=== PATIENT | male | born 1940 | race Caucasian/White ===

== ENCOUNTER 2023-04-06 17:47 | Inpatient (IN) | payer OTHER, SELFPAY ==
[2023-04-06] VITALS (14 sets, daily range): BP systolic 80–137; BP diastolic 64–110; PULSE 2–94
[2023-04-06 13:56] LABS: % Basophils 0.2 % (0-2); % Eosinophils 0.4 % (0-6); % Immature Granulocytes 0.6 % (0-0.5); % Lymphocytes 4.6 % (20.5-51.1); % Monocytes 3.4 % (1.7-9.3); % Neutrophils 90.8 % (42.2-75.2); Absolute Immature Granulocytes 0.1 10^3/uL (0-0.05); Absolute Lymphocytes 0.4 10^3/uL (1.2-3.4); Absolute Monocytes 0.3 10^3/uL (0.1-0.6); Absolute Neutrophils 7.7 10^3/uL (1.4-6.5); Hematocrit 37.3 % (39.0-52.0); Hemoglobin 10.8 g/dL (13.0-18.0); Mean Corpuscular Hgb 28.1 pg (27.0-31.0); Mean Corpuscular Volume 96.9 fL (80.0-94.0); Mean Platelet Volume 8.7 fL (7.4-10.4); Nucleated Red Blood Cells % 0 % (-); Platelet Count 277 10^3/uL (130-400); Red Blood Cell Count 3.85 10^6/uL (4.70-6.10); Red Cell Dist. Width 15.9 % (11.5-14.5); White Blood Cell Count 8.5 10^3/uL (4.8-10.8)
[2023-04-06 14:03] LABS: COVID-19 Antigen Negative (Negative)
[2023-04-06 14:06] LABS: ALT (SGPT) 46 U/L (0-50); AST (SGOT) 29 U/L (17-59); Albumin 3.2 g/dl (3.5-5.0); Alkaline Phosphatase 97 U/L (38-126); Blood Urea Nitrogen 16 mg/dl (9-20); Calcium 8.5 mg/dl (8.4-10.2); Chloride 98 mmol/L (98-107); Glucose 184 mg/dl (70-99); Magnesium 2.2 mg/dl (1.6-2.3); Potassium 5.1 mmol/L (3.5-5.1); Sodium 138 mmol/L (135-145); Total Bilirubin 0.7 mg/dl (0.2-1.3); Total Protein 6.1 g/dl (6.3-8.2); eGFR > 60.00
[2023-04-06 14:18] LABS: NT-proBNP 7460 pg/ml
[2023-04-06] MEDS: LASIX 40 MG IV (14:24)
--- NOTE | 2023-04-06 14:32 | ED.GENMED ---
History of Present Illness
<Maite Spain PA-C - Last Filed: 04/06/23 15:46>
General
Chief Complaint: Breathing Problem
Source: patient
Exam Limitations: none
Time Seen by Provider: 04/06/23 13:24
Nursing documentation reviewed up to this point in time: agreed with
History of Present Illness
History of Present Illness:
pt is a 82 y/o M
afib on eliquis, copd, cad s/p cabg 4 vessel 03/01 here
has had ongoing issues with CHF/fluid overload and pleural effusion
was admitted and discharged 10 days ago and he is on lasix 20 mg from 40 mg (pt has single kidney)
pt has been compliant
but getting worse and worse the past 2 days
low grade temp
and a slight cough
had outpatient CXR from pcp yesterday which showed a pleural effusion and maybe pneumonia
he was treated with 1 dose of abx
he has had ongoing SOB and some mild edema in his legs
he denies chest pain, vomiting, diarrhea.
<Suhail Jones MD - Last Filed: 04/06/23 18:15>
Travel History
Have you had any contact with someone who has COVID-19?: No
Do you have any symptoms of coronavirus? Fever > 100 degrees, chills, cough, shortness of breath, sore throat, loss of taste or smell, muscle aches, or headache?: Yes
Symptoms:: sob
Past History
<Maite Spain PA-C - Last Filed: 04/06/23 15:46>
Past History
ED Past Medical History: Arrthythmia, CAD, CHF, COPD, HTN and Hypercholesterolemia
<Suhail Jones MD - Last Filed: 04/06/23 18:15>
Past History
ED Past Medical History: Other (COPD, hypertension, hyperlipidemia, heart failure, A-fib, CAD)
ED Past Surgical History: Cardiac
Social History
Alcohol: None
Drug: None
Personal:
Living: with family
Review of Systems
<Maite Spain PA-C - Last Filed: 04/06/23 15:46>
Review of Systems
Allergies reviewed?: Yes
All Other Systems: Not applicable
Phy Exam
<Maite Spain PA-C - Last Filed: 04/06/23 15:46>
Physical Exam
Physical Exam:
GENERAL: Alert , resp distress, tachypneic
EYE: pupils equal and reactive
NECK: Supple
ENT: o/p clr, mmm.
CARDIAC:irregularly irregular. trace edema
LUNGS: fairly tachypneic, very minimal breath sounds/diminished, some crackles and wheezes;
ABDOMEN: Soft, without focal tenderness, no r/g, no cvat, normal bowel sounds
NEUROLOGICAL: Alert and oriented, no focal neuro deficits
SKIN: Warm and dry, pale
MUSCULOSKELETAL: No edema, well perfused. neg alvino's sign
PSYCH: Normal and appropriate interaction.
Scores
<YASMANY Conner Last Filed: 04/06/23 15:46>
Heart Failure Risk
Heart Failure Risk Score: Not Applicable
Course
<YASMANY Conner Last Filed: 04/06/23 15:46>
Orders/Labs/Results
Orders:
Orders
04/06/23 13:36
Chest X-ray Portable [CR Chest Portable - 1 View] Stat
Comment:
Reason For Exam: sob, chf
Reason Study Needs to be Portable: Patient Unstable
04/06/23 13:42
Electrocardiogram (*1) Stat
Reason for Study: Other
Other Reason for Exam: chest pain
Cardiac Monitoring- Treatment ONCE
EKG- Treatment ONCE
Bipap [RESP] Stat
Patient to use own unit?: No
Inspiratory Pressure (cm H2O): 12
Expiratory Pressure (cm H2O): 6
04/06/23 13:44
COVID-19 Antigen Urgent
Source: Nasal Swab
Complete Blood Count/With Diff Urgent
Comprehensive Metabolic Panel Urgent
Magnesium Urgent
NT-proBNP Urgent
Troponin I Urgent
Influenza A+B Rapid Molecular Urgent
JOSEY Source: Nasal Swab
Specimen Description:
04/06/23 14:19
Furosemide [Lasix] 40 mg IV NOW STA
04/06/23 14:45
US Chest - Bilateral Urgent
Comment:
Reason For Exam: Evaluate for effusion versus infiltrate. Bedside
04/06/23 14:46
Cefepime HCl [Maxipime] 2,000 mg IV NOW STA
04/06/23 15:42
Ipratropium/Albuterol Sulfate [Duoneb] 3 ml INH R NOW ONE
04/06/23 15:58
Blood Culture Q30M
JOSEY Source: Blood/Venous
Specimen Description:
Blood Culture Q30M
JOSEY Source: Blood/Venous
Specimen Description:
04/06/23 16:16
Furosemide [Lasix] 40 mg IV NOW STA
04/06/23 16:36
Consult Interventional Radiology [IRAD CONSULT] Urgent
Consulting Provider: Kavon Montelongo
Was physician already notified: Yes
Reason for consult: thoracentesis
04/06/23 16:38
Gram Stain Routine
JOSEY Source: Pleural Fluid
Specimen Description:
Comment: POST PROCEDURE
04/06/23 16:47
Admit/Transfer Patient As Directed
Co-Sign Provider:
Level of Care: Inpatient admission
Assign to:: IMU- Intermediate Care
Physician / Group: Alida/Hospitalist
Diagnosis: HCAP, hypoxic respiratory failure, AECHF
Reason for Hospitalization: HCAP, hypoxic respiratory failure, AECHF
Expected length of stay greater than two midnights?: Yes
ELOS- Estimated Length of Stay in days: 4
I certify the patient meets the requirements for IP care: Yes
04/06/23 16:48
Code Status As Directed
Resuscitation Status: Full Code
04/06/23 16:56
Vancomycin 1 Gram/200 ml [Vancocin] 1 gram in 200 ml IV NOW
04/06/23 17:28
Body Fluid Cell Count Routine
What is the Body Fluid: pleural fluid
Date Specimen was Collected: 04/06/23
Time Specimen was Collected: 17:21
Comment: left thoracentesis
Body Fluid Glucose Routine
Fluid Source: Pleural
Date Specimen was Collected: 04/06/23
Time Specimen was Collected: 17:21
Comment: left thoracentesis
Body Fluid LDH Routine
Fluid Source: Pleural
Date Specimen was Collected: 04/06/23
Time Specimen was Collected: 17:21
Comment: left thoracentesis
Body Fluid Protein Routine
Fluid Source: Pleural
Date Specimen was Collected: 04/06/23
Time Specimen was Collected: 17:21
Comment: left thoracentesis
Body Fluid pH Routine
Fluid Source: Pleural
Date Specimen was Collected: 04/06/23
Time Specimen was Collected: 17:21
Comment: left thoracentesis
Fluid Culture with Gram Stain Routine
JOSEY Source: Pleural Fluid
Specimen Description:
Date Specimen was Collected: 04/06/23
Time Specimen was Collected: 17:21
Comment: left thoracentesis
04/06/23 17:30
Chest X-ray Portable [CR Chest Portable - 1 View] Urgent
Comment:
Reason For Exam: left thoracentesis
Reason Study Needs to be Portable: Other
If Reason is Other, explain: monitored
04/07/23 08:00
Furosemide [Lasix] 80 mg IV BID AT 0800,1600
Abnormal Lab Results
04/06/23
13:44
RBC 3.85 L 10^6/uL
(4.70-6.10)
Hgb 10.8 L g/dL
(13.0-18.0)
Hct 37.3 L %
(39.0-52.0)
MCV 96.9 H fL
(80.0-94.0)
MCHC 29.0 L g/dL
(33.0-37.0)
RDW 15.9 H %
(11.5-14.5)
Abs Immat Gran (auto) 0.1 H 10^3/uL
(0-0.05)
Absolute Neuts (auto) 7.7 H 10^3/uL
(1.4-6.5)
Absolute Lymphs (auto) 0.4 L 10^3/uL
(1.2-3.4)
Immature Gran % 0.6 H %
(0-0.5)
Neutrophils % 90.8 H %
(42.2-75.2)
Lymphocytes % 4.6 L %
(20.5-51.1)
Carbon Dioxide 37 H mmol/L
(22-30)
Glucose 184 H mg/dl
(70-99)
Total Protein 6.1 L g/dl
(6.3-8.2)
Albumin 3.2 L g/dl
(3.5-5.0)
04/06/23 13:44
04/06/23 13:44
Vital Signs
Initial and Last Documented VS:
Initial Vital Signs
Temp Pulse Resp Pulse Ox
100.1 F 91 22 88
04/06/23 13:12 04/06/23 13:12 04/06/23 13:12 04/06/23 13:12
Last Documented Vital Signs
Temp Pulse Resp BP Pulse Ox
98.2 F 80 23 108/74 97
04/06/23 17:30 04/06/23 17:51 04/06/23 17:51 04/06/23 17:51 04/06/23 17:45
<Suhail Jones MD - Last Filed: 04/06/23 18:15>
Orders/Labs/Results
Orders:
Orders
04/06/23 13:36
Chest X-ray Portable [CR Chest Portable - 1 View] Stat
Comment:
Reason For Exam: sob, chf
Reason Study Needs to be Portable: Patient Unstable
04/06/23 13:42
Electrocardiogram (*1) Stat
Reason for Study: Other
Other Reason for Exam: chest pain
Cardiac Monitoring- Treatment ONCE
EKG- Treatment ONCE
Bipap [RESP] Stat
Patient to use own unit?: No
Inspiratory Pressure (cm H2O): 12
Expiratory Pressure (cm H2O): 6
04/06/23 13:44
COVID-19 Antigen Urgent
Source: Nasal Swab
Complete Blood Count/With Diff Urgent
Comprehensive Metabolic Panel Urgent
Magnesium Urgent
NT-proBNP Urgent
Troponin I Urgent
Influenza A+B Rapid Molecular Urgent
JOSEY Source: Nasal Swab
Specimen Description:
04/06/23 14:19
Furosemide [Lasix] 40 mg IV NOW STA
04/06/23 14:45
US Chest - Bilateral Urgent
Comment:
Reason For Exam: Evaluate for effusion versus infiltrate. Bedside
04/06/23 14:46
Cefepime HCl [Maxipime] 2,000 mg IV NOW STA
04/06/23 15:42
Ipratropium/Albuterol Sulfate [Duoneb] 3 ml INH R NOW ONE
04/06/23 15:58
Blood Culture Q30M
JOSEY Source: Blood/Venous
Specimen Description:
Blood Culture Q30M
JOSEY Source: Blood/Venous
Specimen Description:
04/06/23 16:16
Furosemide [Lasix] 40 mg IV NOW STA
04/06/23 16:36
Consult Interventional Radiology [IRAD CONSULT] Urgent
Consulting Provider: Kavon Montelongo
Was physician already notified: Yes
Reason for consult: thoracentesis
04/06/23 16:38
Gram Stain Routine
JOSEY Source: Pleural Fluid
Specimen Description:
Comment: POST PROCEDURE
04/06/23 16:47
Admit/Transfer Patient As Directed
Co-Sign Provider:
Level of Care: Inpatient admission
Assign to:: IMU- Intermediate Care
Physician / Group: Alida/Hospitalist
Diagnosis: HCAP, hypoxic respiratory failure, AECHF
Reason for Hospitalization: HCAP, hypoxic respiratory failure, AECHF
Expected length of stay greater than two midnights?: Yes
ELOS- Estimated Length of Stay in days: 4
I certify the patient meets the requirements for IP care: Yes
04/06/23 16:48
Code Status As Directed
Resuscitation Status: Full Code
04/06/23 16:56
Vancomycin 1 Gram/200 ml [Vancocin] 1 gram in 200 ml IV NOW
04/06/23 17:28
Body Fluid Cell Count Routine
What is the Body Fluid: pleural fluid
Date Specimen was Collected: 04/06/23
Time Specimen was Collected: 17:21
Comment: left thoracentesis
Body Fluid Glucose Routine
Fluid Source: Pleural
Date Specimen was Collected: 04/06/23
Time Specimen was Collected: 17:21
Comment: left thoracentesis
Body Fluid LDH Routine
Fluid Source: Pleural
Date Specimen was Collected: 04/06/23
Time Specimen was Collected: 17:21
Comment: left thoracentesis
Body Fluid Protein Routine
Fluid Source: Pleural
Date Specimen was Collected: 04/06/23
Time Specimen was Collected: 17:21
Comment: left thoracentesis
Body Fluid pH Routine
Fluid Source: Pleural
Date Specimen was Collected: 04/06/23
Time Specimen was Collected: 17:21
Comment: left thoracentesis
Fluid Culture with Gram Stain Routine
JOSEY Source: Pleural Fluid
Specimen Description:
Date Specimen was Collected: 04/06/23
Time Specimen was Collected: 17:21
Comment: left thoracentesis
04/06/23 17:30
Chest X-ray Portable [CR Chest Portable - 1 View] Urgent
Comment:
Reason For Exam: left thoracentesis
Reason Study Needs to be Portable: Other
If Reason is Other, explain: monitored
04/07/23 08:00
Furosemide [Lasix] 80 mg IV BID AT 0800,1600
Abnormal Lab Results
04/06/23
13:44
RBC 3.85 L 10^6/uL
(4.70-6.10)
Hgb 10.8 L g/dL
(13.0-18.0)
Hct 37.3 L %
(39.0-52.0)
MCV 96.9 H fL
(80.0-94.0)
MCHC 29.0 L g/dL
(33.0-37.0)
RDW 15.9 H %
(11.5-14.5)
Abs Immat Gran (auto) 0.1 H 10^3/uL
(0-0.05)
Absolute Neuts (auto) 7.7 H 10^3/uL
(1.4-6.5)
Absolute Lymphs (auto) 0.4 L 10^3/uL
(1.2-3.4)
Immature Gran % 0.6 H %
(0-0.5)
Neutrophils % 90.8 H %
(42.2-75.2)
Lymphocytes % 4.6 L %
(20.5-51.1)
Carbon Dioxide 37 H mmol/L
(22-30)
Glucose 184 H mg/dl
(70-99)
Total Protein 6.1 L g/dl
(6.3-8.2)
Albumin 3.2 L g/dl
(3.5-5.0)
04/06/23 13:44
04/06/23 13:44
Vital Signs
Initial and Last Documented VS:
Initial Vital Signs
Temp Pulse Resp Pulse Ox
100.1 F 91 22 88
04/06/23 13:12 04/06/23 13:12 04/06/23 13:12 04/06/23 13:12
Last Documented Vital Signs
Temp Pulse Resp BP Pulse Ox
98.2 F 80 23 108/74 97
04/06/23 17:30 04/06/23 17:51 04/06/23 17:51 04/06/23 17:51 04/06/23 17:45
<Maite Spain PA-C - Last Filed: 04/06/23 15:46>
MDM/Problems Addressed
Differential Diagnosis Includes:
chf, pneumonia
MDM/Problems Addressed:
82 y/o M wit hh/o cabg and post operative CHF and pleural effuison
her with increasing SOB and cough with outpatient cxr showing worsening L pleural effusion
pt has had a low grade temp today
got a dose of abx from PCP yesterday
pt has been hospaitlized as recently as a few weeks ago for similar complaints
family says he was told that they were considering a thoracentesis but it was never set up
pt on arrival was very hypoxc to 70s with pale coloring and inc work of breathing, moving minimal air
mild edema b/l
no chest pain
slightly hypertensive 130/100
portable chest reviewed by me to show a worsening left pleural effusino and slightly worse right small effusion
reading from rads is cannot exclude pna
due to patient's hypoxia and inc work fo breathing, pt was immediateyl placed on bipap
he stayed on for about an hour before asking to come off
taken off bipap ab 1545 by principal technical specialist after pt insistent
signed out to hospitalist
pt will need cards, pulm and IR consults.
<Maite Spain PA-C - Last Filed: 04/06/23 15:46>
*Critical Care Note
Total Time (30-74mins, 75-104mins- exclusive of procedures): Not Applicable
<Suhail Jones MD - Last Filed: 04/06/23 18:15>
ED Attending Note
Patient seen and examined by attending physician: Yes
ED Attending Note:
Patient with progressive shortness of breath. Recent CABG. Recent admission for COPD CHF. Known left pleural effusion. Much more short of breath today. No chest pain. No fever.
GENERAL: Alert and oriented. Mild respiratory distress. Currently on BiPAP
EYE: Orbits normal.
NECK: Supple
CARDIAC: Irregular irregular
LUNGS: Mild tachypnea. Decreased breath sounds left base. Some distant breath sounds diffusely
ABDOMEN: Soft, without focal tenderness or distention
NEUROLOGICAL: Alert and oriented , grossly non-focal
SKIN: Warm and dry, no rash or lesion, no discoloration, skin intact.
MUSCULOSKELETAL: Mild bilateral pitting edema. Minimal in nature
PSYCH: Normal and appropriate interaction.
Previous records reviewed. EKG reviewed. CHF pleural effusion possible infiltrate left base. Reviewed with radiology. Cardiology interventional radiology and hospitalist contacted. Continue BiPAP. Lasix. Antibiotic coverage for possible
consolidation. Bedside ultrasound to evaluate degree of effusion. Family updated multiple times.
Ultrasound showed significant left pleural effusion. Interventional radiology consulted. Patient returned from IR with 1200 cc of fluid. Appears much improved.
Critical care 40 minutes
-
Portions of this chart may have been created with voice recognition software.� Occasional wrong word or��sound alike� substitutions may have occurred due to the inherent limitations of voice recognition software.
Discharge Plan
Departure
Patient Disposition: Admit
Date of Disposition: 04/06/23
Time of Disposition: 14:28
Admit to: IMU
Presentation/result/management discussed w/ accepting MD/DO: Hospitalist
Condition: Fair
Covid-19: Negative COVID-19
Discharge Problem:
CHF (congestive heart failure), Pleural effusion, Hypoxia
Interventions
Interventions:
*Risk Screen - Suicide Last Done: 04/06/23 13:16
*General Assessment Last Done: 04/06/23 13:16
*Neglect/Abuse Screening Last Done: 04/06/23 13:16
ED- Fall Risk Assessment Last Done: 04/06/23 13:42
ED- Cardiac Assessment Last Done: 04/06/23 13:42
ED- Pulmonary Assessment Last Done: 04/06/23 13:42
[2023-04-06 14:46] LABS: Carbon Dioxide 37 mmol/L (22-30)
[2023-04-06] MEDS: MAXIPIME 2000 MG IV (15:20)
--- NOTE | 2023-04-06 15:34 | CON.CAR ---
Consultation
Consultation Request
Date/Time Consultation Requested: 04/06/2023 at 1530
Date/Time Consultation Performed: 04/06/2023 1500
Requesting Provider: Dr. Jones
Performing Provider: Dr. Crowder
Reason for Consultation: sob
Medical History
-
History of Present Illness:
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
82-year-old male with history of coronary artery bypass grafting x 4 on 03/01/2023, postoperative atrial fibrillation, anticoagulation with Eliquis, COPD, hypertension, hypercholesterolemia, RFED, cardiomyopathy with ejection fraction 40 to 45%, right
nephrectomy who presents with shortness of breath. Sounds as if the patient's had some chronic exertional shortness of breath since discharge he is also still been weak ever since his surgery and then he says he just became more short of breath
today. at the bedside seems to feel it was a bit more progressive. Patient has had some cough with occasional yellow sputum but no recent increase in sputum production. No fevers. No chest pain on Eliquis last dose this morning. No
bleeding issues.
Chest x-ray with left-sided consolidation and moderate-sized pleural effusion small effusion on right
Past medical history
Hospitalization 03/23/2023 with respiratory insufficiency felt to be heart failure and COPD exacerbation during that admission decision was made to discontinue amiodarone
Coronary artery bypass grafting x [address] Spaulding on 03/01/2023
Paroxysmal atrial fibrillation. Discussion with patient regarding DERIC cardioversion last admission and patient opted to be on anticoagulation for greater than 3 weeks prior to proceeding with cardioversion.
Anticoagulation with Eliquis
Cardiomyopathy with an ejection fraction of 40 to 45%
Right nephrectomy 1994
Prostatectomy
Sleep apnea using CPAP
Hypertension
Hypercholesterolemia prostatectomy
Past Medical History
Past Medical History: Other (As above)
Social History
Tobacco: Non-Smoker
Family History
Family History: CAD
Allergies / Home Medications
Allergy/AdvReac Type Severity Reaction Status Date / Time
No Known Allergies Allergy Verified 03/23/23 17:45
Medication Instructions Recorded Confirmed Type
atorvastatin 40 mg tablet 40 mg PO QPM #90 tabs 01/25/23 04/06/23 Rx
acetaminophen 325 mg tablet 650 mg PO Q4HPRN PRN mild 03/06/23 04/06/23 Rx
pain,headache,temp >101F #0 tabs
pantoprazole 40 mg tablet,delayed 40 mg PO DAILY Gastrointestinal 03/06/23 04/06/23 Rx
release issue #30 tabs
apixaban 5 mg tablet (Eliquis) 5 mg PO BID #60 tabs 03/07/23 04/06/23 Rx
umeclidinium 62.5 mcg-vilanterol 1 inh inhalation R DAILY 03/13/23 04/06/23 History
25 mcg/actuation powdr for
inhalation (Anoro Ellipta)
cyanocobalamin (vitamin B-12) 1,000 mcg PO DAILY #100 tabs 03/15/23 04/06/23 Rx
1,000 mcg tablet
ipratropium 0.5 mg-albuterol 3 mg 3 ml inhalation R Q4HPRN PRN 03/15/23 04/06/23 Rx
(2.5 mg base)/3 mL nebulization wheezing #90 mL
soln
albuterol sulfate 90 mcg/actuation 2 puff inhalation R Q6 PRN 04/06/23 04/06/23 History
aerosol inhaler sob/wheezing
aspirin 81 mg tablet,delayed 81 mg PO DAILY 04/06/23 04/06/23 History
release
azithromycin 250 mg tablet 250 mg PO DAILY 04/06/23 04/06/23 History
furosemide 40 mg tablet 20 mg PO DAILY 04/06/23 04/06/23 History
methylprednisolone 4 mg tablets in 4 mg PO .TAPER 04/06/23 04/06/23 History
a dose pack
nitroglycerin 0.4 mg sublingual 0.4 mg sublingual [id number] PRN 04/06/23 04/06/23 History
tablet chest pain
Review of Systems
-
All other systems: Negative unless noted
Physical Exam
Vital Signs
Temp Pulse Resp BP Pulse Ox
100.1 F 88 22 132/76 88
04/06/23 13:12 04/06/23 14:24 04/06/23 13:12 04/06/23 14:24 04/06/23 13:12
Lab Results
04/06/23 13:44
04/06/23 13:44
Troponin I 0.030 ng/ml 04/06/23 13:44
Hnn-L-Wftmnsnukck Pept 7460 pg/ml 04/06/23 13:44
Physical Exam
General: Other (Tachypnea.)
HEENT: Normocephalic
Respiratory: Other (Wheezes present. Crackles at bases left greater than right)
Cardiac: Irregular Rhythm and Other (Sternal incision well-healed)
GI: Soft, Non Tender, Normal Bowel Sounds and Other (Distended no masses detected. Limited exam patient sitting upright due to shortness of breath)
Musculoskeletal: Other (No clubbing or cyanosis.)
Skin: Warm and Dry
Neuro: Awake
Hematologic/Lymphatic: No Lymphadenopathy
Psych: Calm
Impression / Plan
-
Respiratory insufficiency. Likely multifactorial including moderate size left pleural effusion, acute left heart failure, pneumonia and COPD
- Diuresis with IV Lasix 80 mg IV twice daily.
-Optimize treatment for COPD. Patient currently receiving neb
-Treatment of suspected pneumonia as directed by hospitalist
-With the size of the effusion on x-ray would consider left thoracentesis
.
Coronary artery disease/coronary artery bypass grafting. Recent bypass surgery.
-No symptoms to suggest angina
- continue medical therapy
.
Cardiomyopathy. Last echo 03/26/2023 ejection fraction 40 to 45% with basal inferior and and inferolateral hypokinesis aortic sclerosis without stenosis.
.
A-fib. Continue rate control and anticoagulation.
-Note amiodarone was discontinued on the last admission suspect this was to avoid possible pulmonary effects
-Plan for electrical cardioversion after patient's been consistently on anticoagulation for greater than 3 weeks. This was based on patient's prior request to avoid DERIC. Could reconsider timing of getting patient back in rhythm but respiratory
status needs to be improved prior to considering any additional procedures.
.
Sleep apnea. CPAP
Pleural effusion and consolidation noted on chest x-ray. Treatment as noted above.
Data Reviewed
-
EKG: Other (Atrial fibrillation with prior anteroseptal NM)
Radiology: Report Reviewed by me (Moderate size left pleural effusion and left-sided consolidation small right-sided effusion.) and Discussed with Physician (Dr. Jones and Dr. Irwin)
Medical Tests (Nuc Med, Echo etc): Report Reviewed by me
Labs: Labs Reviewed by me
--- NOTE | 2023-04-06 15:43 | HPS.HSE ---
Family Physician
-
Family Physician: Braulio Beltrán
Chief Complaint
-
SOB, cough
History of Present Illness
The patient is an 82 yo male with PMH significant for CABG 03/01/23, post-operative persistent A.fib on Eliquis, COPD, on home oxygen 3 L post CABG, CHF, HTN, HLD, right kidney cancer s/p right nephrectomy, presents to the ED due to dyspnea with
difficulty breathing, low grade temperature in ED 100.1, minimal cough. He is tachypneic in ED requiring BIPAP for respiratory stability. Hypoxic at 88 RA and respiratory rate at 38 and persistently elevated in high 30s. CXR and US in ED performed
show moderate left pleural effusion and smaller right pleural effusion along w dense LLL consolidation and cardiogenic interstitial pulmonary edema. IR discussed the case with ED physician with discussion to tap the left effusion, Cardiology saw the
patient in the ED as well. The patient denies CP, no palpitations, no LOC, no headache, no syncope, no n/v/d, no chills. He saw his PCP yesterday who obtained CXR, started oral steroids, and oral abx yesterday, and told pt to come to ED regarding
symptoms and CXR findings outpatient.
ED txt:
IV Cefepime
IV Lasix 80
Duo-Neb
BIPAP 02/27 and NRB
Medical History
Past Medical History
Past Medical History: Reports Arrhythmia (persistent a.fib on Eliquis), CHF, COPD (2L at home), HTN, Hypercholesterolemia and Other
Additional Past Medical History:
Anemia of chronic disease
Pulmonary HTN
COPD,
essential hypertension,
hyperlipidemia,
heart failure,
A-fib,
CAD
Recent heart surgery
Right kidney cancer
Past Surgical History: Reports Cardiac (CABG 03/01/23 ) and Other (nephrectomy)
Social History
Tobacco: Non-smoker
Alcohol: Occasional
Drug: None
Family History
Family History: Not pertinent
Allergies / Home Medications
Allergies reflects when Allergies were last updated in [facility].
Home Medications with original date entered in [facility]
Allergy/Medication List:
Allergies
Allergy/AdvReac Type Severity Reaction Status Date / Time
No Known Allergies Allergy Verified 03/23/23 17:45
Home Medications
atorvastatin 40 mg tablet 40 mg PO QPM #90 tabs 01/25/23
acetaminophen 325 mg tablet 650 mg PO Q4HPRN PRN mild pain,headache,temp >101F #0 tabs 03/06/23
pantoprazole 40 mg tablet,delayed release 40 mg PO DAILY Gastrointestinal issue #30 tabs 03/06/23
apixaban 5 mg tablet (Eliquis) 5 mg PO BID #60 tabs 03/07/23
umeclidinium 62.5 mcg-vilanterol 25 mcg/actuation powdr for inhalation (Anoro Ellipta) 1 inh inhalation R DAILY 03/13/23
cyanocobalamin (vitamin B-12) 1,000 mcg tablet 1,000 mcg PO DAILY #100 tabs 03/15/23
ipratropium 0.5 mg-albuterol 3 mg (2.5 mg base)/3 mL nebulization soln 3 ml inhalation R Q4HPRN PRN wheezing #90 mL 03/15/23
albuterol sulfate 90 mcg/actuation aerosol inhaler 2 puff inhalation R Q6 PRN sob/wheezing 04/06/23
aspirin 81 mg tablet,delayed release 81 mg PO DAILY 04/06/23
azithromycin 250 mg tablet 250 mg PO DAILY 04/06/23
furosemide 40 mg tablet 20 mg PO DAILY 04/06/23
methylprednisolone 4 mg tablets in a dose pack 4 mg PO .TAPER 04/06/23
nitroglycerin 0.4 mg sublingual tablet 0.4 mg sublingual [id number] PRN chest pain 04/06/23
Review of Systems
-
A 12 point ROS was completed and negative except as noted: Yes
Physical Exam
Vital Signs
Vital Signs
Temp Pulse Resp BP Pulse Ox
100.1 F 90 38 133/75 95
04/06/23 13:12 04/06/23 15:31 04/06/23 15:31 04/06/23 15:00 04/06/23 15:31
Physical Exam
General: Conversant and Respiratory Distress (tachypneic )
HEENT: NormoCephalic, Anicteric and Moist mucous membranes
Respiratory: Rales (bilateral)
Cardiac: S1/S2 and Irregular Rhythm
GI: Soft, Non Tender, Non Distended and Normal Bowel Sounds
Musculoskeletal: No Clubbing, No Cyanosis, Edema, Left Lower Extremity (1+) and Edema, Right Lower Extremity (1+)
Skin: Warm and Dry
Neuro: AO x 3, No Motor Deficits and Nonfocal/grossly intact
Psych: Calm
Laboratory Results
-
04/06/23 13:44
04/06/23 13:44
Laboratory Results
Total Bilirubin 0.7 mg/dl (0.2-1.3) 04/06/23 13:44
AST 29 U/L (17-59) 04/06/23 13:44
ALT 46 U/L (0-50) 04/06/23 13:44
Alkaline Phosphatase 97 U/L (38-126) 04/06/23 13:44
Troponin I 0.030 ng/ml 04/06/23 13:44
Data Reviewed
-
Diagnostic Radiology: Image Personally Visualized and interpreted and Report Reviewed by me
Medical Tests (Nuc Med, Echo, EKG etc): Image Personally Visualized and interpreted and Report Reviewed by me
Impression/Plan
-
IMPRESSION:The patient is an 82 yo male with PMH significant for CABG 03/01/23, post-operative persistent A.fib on Eliquis, COPD, on home oxygen 3 L post CABG, CHF, HTN, HLD, right kidney cancer s/p right nephrectomy, presents to the ED due to
dyspnea with difficulty breathing, low grade temperature in ED 100.1, minimal cough. He is tachypneic in ED requiring BIPAP for respiratory stability. Hypoxic at 88 RA and respiratory rate at 38 and persistently elevated in high 30s.
ED txt:
IV Cefepime
IV Lasix 80
Duo-Neb
BIPAP 02/27 and NRB
#Acute on chronic hypoxic respiratory failure multifactorial likely due to 1) healthcare associated pneumonia with gram negative bacteria and possibly gram positive bacteria, moderate size left pleural effusion, acute HFrEF, and likely a component
of COPD exacerbation
-sputum cx 03/24 positive for P Aeruginosa & MSSA, will txt as HCAP w broad-spectrum IV abx
#COPD exacerbation
#HCAP, as above
# CAD s/p CABG March 01, 2023 �
- Cardiology consultation appreciated--No symptoms to suggest angina
- continue medical management
#Cardiomyopathy�
-Echo 03/26/2023 EF 40 to 45% with basal inferior and and inferolateral hypokinesis aortic sclerosis without stenosis.
#A-fib on Eliquis-
- Continue rate control and anticoagulation.
-Plan as noted by cards: 'electrical cardioversion after patient's been consistently on anticoagulation for greater than 3 weeks.� This was based on patient's prior request to avoid DERIC.� Could reconsider timing of getting patient back in rhythm but
respiratory status needs to be improved prior to considering any additional procedures.'
#Sleep apnea.� CPAP
-nightly CPAP
#Renal cancer s/p nephrectomy
PLAN:
-IMU admission , at higher risk for cardiopulmonary instability and respiratory failure requiring intubation, monitor closely
- IV Lasix 40 mg IV BID
-Duo-Neb scheuled and prn
-IV steroids TID for now and wean
-O2 NRB mask at this time, BIPAP if needed
-IV Cefepime, IV Vanco
-Discuss with IR left-sided thoracentesis of effusion with fluid analysis
-blood, urine, sputum cx, SUA, ROXANA
-COVID , Flu negative
-continue aspirin, statin, Eliquis, PPI
DVT proph-Eliquis
Full Code
[2023-04-06] MEDS: DUONEB 3 ML INH (15:54)
[2023-04-06 18:29] LABS: Body Fluid pH 7.51
[2023-04-06] MEDS: VANCOCIN 200 IV (18:31)
[2023-04-06 18:34] LABS: Body Fluid Glucose 139 mg/dl; Body Fluid LDH 229 U/L; Body Fluid Protein 2.7 g/dl; Body Fluid WBC 245 /CUMM
[2023-04-06 18:35] LABS: Body Fluid Mononuclear 69.4 %; Body Fluid Polymorphonuclear 30.6 %
[2023-04-06 18:36] LABS: Body Fluid Second Tech BD
[2023-04-07] VITALS (26 sets, daily range): BP systolic 97–143; BP diastolic 52–102; PULSE 87; O2SAT 92; BMI 31.1
[2023-04-07] MEDS: DUONEB 3 ML INH ×4 (08:49→20:32)
[2023-04-07] MEDS: SPIRIVA RESPIMAT 2.5 MCG INH (08:50)
[2023-04-07] MEDS: STRIVERDI RESPIMAT 2 PUFF INH (08:51)
--- NOTE | 2023-04-07 09:01 | PHA.VAN.IN ---
Assessment
- Assessment
Renal Function: Appears similar to baseline
Concomitant Antimicrobials: cefepime
AUC Dosing Plan
- Dosing Variables
Dosing Weight (kg): 92
Dosing CrCl (ml/min): 64
Vd coefficient (L/kg): 0.6
- Empiric Dosing
Initial / Loading Dose: 1000 mg 04/06@1830
Maintenance Regimen: 1500 mg q24h - first dose today
Estimated AUC (mcg*h/mL): 493
Estimated Peak (mcg*h/mL): 36.3
Estimated Trough (mcg/ml): 10
Estimated Half Life (H): 12
- Monitoring
No levels ordered at this time: consider levels when pt reaches steady state
Pharmacokinetics Vancomycin I
- -
Patient Age: 82
Patient Sex: Male
Vancomycin Day #: 1
Indication: Pulmonary/Respiratory
Requesting Provider: Alida
Height / Weight:
Actual Weight 92.079 kg
Pertinent Past Medical History: CABG 03/01/23; home O2,right kidney cancer
- Vital Signs / Lab Results
Temp Pulse Resp BP Pulse Ox
98.2 F 85 20 124/60 96
04/06/23 17:30 04/07/23 08:54 04/07/23 08:54 04/07/23 08:00 04/07/23 08:54
Lab Results - Hematology
04/06/23
13:44
WBC 8.5
Lab Results - Chemistry
04/06/23
13:44
BUN 16
Creatinine 1.0
Albumin 3.2 L
Microbiology Results
04/06/23 13:44 Influenza Types A & B (ELLIS) - Final
Nasal Swab Negative for Influenza A & B, NAAT
Negative results must be combined with clinical observations
and patient history.
Nucleic Acid Amplification test (NAAT)performed on the
[employer] platform.
--- NOTE | 2023-04-07 09:58 | W.PN.CD ---
Today's Communication / Plan
-
Patient's condition has improved after thoracentesis.
Difficult to tell how much he is diuresed. Accurate I's and O's currently not available.
Check follow-up labs including renal function.
Continue to assess Lasix dosing. Will change dosing to daily
Treatment of COPD as directed by primary team
Renal profile ordered. Await results.
Impression / Plan
-
Epidemiology Intern -is Dr. Bhandari
Respiratory insufficiency. Likely multifactorial including moderate size left pleural effusion, acute left heart failure, pneumonia and COPD
-Continue Lasix but monitor renal function closely.
-Feels significantly better post thoracentesis.
-Optimize treatment for COPD. Patient currently receiving neb
-Treatment of suspected pneumonia as directed by hospitalist
.
Pleural effusion. Patient postthoracentesis. Performed 04/06/2023
.
Coronary artery disease/coronary artery bypass grafting. Recent bypass surgery.
-No symptoms to suggest angina
- continue medical therapy
.
Cardiomyopathy. Last echo 03/26/2023 ejection fraction 40 to 45% with basal inferior and and inferolateral hypokinesis aortic sclerosis without stenosis.
.
A-fib. Continue rate control and anticoagulation.
-Note amiodarone was discontinued on the last admission suspect this was to avoid possible pulmonary effects
-Plan for electrical cardioversion after patient's been consistently on anticoagulation for greater than 3 weeks. This was based on patient's prior request to avoid DERIC. Could reconsider timing of getting patient back in rhythm but respiratory
status needs to be improved prior to considering any additional procedures.
.
Sleep apnea. CPAP
Pleural effusion and consolidation noted on chest x-ray. Treatment as noted above.
History of nephrectomy
Physical Exam
Vital Signs/Labs
Vital Signs
Temp Pulse Resp BP Pulse Ox
98.2 F 85 20 124/60 96
04/06/23 17:30 04/07/23 08:54 04/07/23 08:54 04/07/23 08:00 04/07/23 08:54
04/06/23 04/07/23 04/08/23
06:59 06:59 06:59
Actual Weight 92.079 kg
04/06/23 13:44
Magnesium 2.2 mg/dl (1.6-2.3) 04/06/23 13:44
04/06/23
13:44
[id number] Pept 7460
LAB Results
04/06/23
13:44
Troponin I 0.030
Physical Exam
Constitutional: No acute distress
EENT: Anicteric
Cardiovascular: Rhythm/rate is irregular
Respiratory: Wheeze Absent, Rhonchi Absent and Other (Decreased breath sounds at bases)
GI: Soft
Neuro/Psych: Alert
Data Reviewed
-
Date of Service: April 07, 2023
Medical Decision Making: Reviewed Test Results
X-Ray/CT/US/MRI/NUC/PET: Report Reviewed by me
Medical Tests (PFT, Pathology etc): Report Reviewed by me
Labs: Labs Reviewed by me
[2023-04-07] MEDS: DECADRON 4 MG IV ×3 (10:34→23:30)
[2023-04-07] MEDS: PROTONIX 40 MG PO (10:35)
[2023-04-07] MEDS: VITAMIN B-12 1000 MCG PO (10:35)
[2023-04-07] MEDS: MAXIPIME 2000 MG IV ×2 (10:35→18:20)
[2023-04-07] MEDS: ASPIR LOW (ENTERIC COATED) 81 MG PO (10:35)
[2023-04-07] MEDS: ELIQUIS 5 MG PO ×2 (10:35→20:02)
[2023-04-07] MEDS: STERILE WATER FOR INJECTION 10 ML IV ×2 (10:36→18:21)
[2023-04-07] MEDS: VANCOCIN 300 ML IV (11:13)
[2023-04-07] MEDS: VANCOCIN 300 MG IV (11:13)
[2023-04-07 11:59] LABS: Albumin 2.8 g/dl (3.5-5.0); Blood Urea Nitrogen 19 mg/dl (9-20); Calcium 8.5 mg/dl (8.4-10.2); Chloride 93 mmol/L (98-107); Glucose 248 mg/dl (70-99); Phosphorus 4.1 mg/dl (2.5-4.5); Potassium 5.3 mmol/L (3.5-5.1); Sodium 139 mmol/L (135-145); eGFR > 60.00
[2023-04-07 12:04] LABS: Troponin I 0.028 ng/ml
[2023-04-07 12:11] LABS: Carbon Dioxide 46 mmol/L (22-30)
--- NOTE | 2023-04-07 13:38 | W.PN.HOSP.TC ---
Today's Communication/Plan
-
Medically complex
Feels better after thoracentesis
Continue diuresis, treatment for PNA, and treatment for COPD.
Assessment / Plan
Assessment / Plan
82 yo man with PMH significant for:
CABG 03/01/23,
post-operative persistent A.fib on Eliquis,
COPD, on home oxygen 3 L
post CABG,
CHF,
HTN,
HLD,
right kidney cancer s/p right nephrectomy,
presents to the ED due to dyspnea with difficulty breathing, temp of 100.1, cough. Requiring BIPAP for respiratory stability. was Hypoxic at 88 RA and had a respiratory rate of 38. In ED given IV Cefepime, IV Lasix 80, Duo-Neb, BIPAP 02/27 and NRB.
THen had a thoracentesis and 1250 CCs of hemophagic fluid removed. He felt better after this.
1. Acute on chronic hypoxic respiratory failure multifactorial likely due to:
A. healthcare associated pneumonia with gram negative bacteria and possibly gram positive bacteria;
-COVID , Flu negative
sputum cx 03/24 positive for P Aeruginosa & MSSA,
Continue treatment as HCAP w broad-spectrum IV abx
-IV Cefepime, IV Vanco
Eval fluid analyses of effusion when available
B. moderate size left pleural effusion, s/p drainage from thoracentesis
C. acute HFrEF;
D. COPD exacerbation
2. COPD exacerbation
Treat COPD exacerbation:
-Duo-Nebs scheduled and prn
-IV steroids TID
-O2 NRB mask at this time, BIPAP prn
3. CAD s/p CABG March 01, 2023 �
Cardiology consultation appreciated--No symptoms to suggest angina
continue medical management
-aspirin, statin, Eliquis, PPI
-cycle troponins (negx2 so far)
4. Cardiomyopathy�
Echo 03/26/2023 EF 40 to 45% with basal inferior and and inferolateral hypokinesis aortic sclerosis without stenosis.
Diurese
5. Acute HF with rEF
- IV Lasix 40 mg IV BID
6. A-fib on Eliquis-
- Continue rate control and anticoagulation.
-Plan as noted by cards:
'electrical cardioversion after patient's been consistently on anticoagulation for greater than 3 weeks.�
This was based on patient's prior request to avoid DERIC.�
Could reconsider timing of getting patient back in rhythm but respiratory status needs to be improved prior to considering any additional procedures.'
7. Sleep apnea.
-nightly CPAP
8. Renal cancer s/p nephrectomy - dose meds with care.
Current BUN/Creat 19/1.0
9. High K - check daily. Should improve with diuresis
10. BG of 248 - supplemental insulin as needed
DVT proph-Eliquis
Full Code
Anticipated Discharge: > 48 hours
Subjective/Interval History
-
Date of Service: April 07, 2023
Objective Data
-
Labs:
Laboratory Results
04/07/23
11:29
Sodium 139
Potassium 5.3 H
Chloride 93 L
Carbon Dioxide 46 H
BUN 19
Creatinine 1.0
Glucose 248 H
Calcium 8.5
Vital Signs:
Vital Signs
Temp Pulse Resp BP Pulse Ox
98.2 F 87 17 123/79 92
04/06/23 17:30 04/07/23 13:07 04/07/23 13:07 04/07/23 13:07 04/07/23 13:00
Review of Systems
-
History Source: Patient
All other systems: Reviewed and negative
Physical Exam
-
General: Well Developed, Well Nourished, No Apparent Distress and Comfortable
HEENT: Normocephalic, Moist Mucous Membranes, Nose Appears Normal, Ears Appear Normal and Oxygen
Respiratory: Decreased Breath Sounds
Cardiac: S1/S2 and Irregular Rhythm
GI: Soft, Nontender and Nondistended
Musculoskeletal: No Clubbing and No Cyanosis
Skin: Warm and Dry; Negative Rash
Neuro: Awake, Alert and Oriented
Psych: Calm
Data Reviewed
-
Labs: Labs Reviewed by me
[2023-04-07 16:21] LABS: Glucose - Point of Care 345 mg/dl (70-99)
[2023-04-07] MEDS: NOVOLOG FLEXPEN-LOW RESISTANCE 4 UNITS SC (16:54)
[2023-04-07 17:38] LABS: Troponin I 0.021 ng/ml
--- NOTE | 2023-04-07 18:08 | RESPNOTE ---
Patient ordered HS CPAP.. as per patient and no usage at home, and he wont be wearing one while here in the hospital. No machine left bedside
[2023-04-07] MEDS: LIPITOR 40 MG PO (18:20)
[2023-04-07 23:12] LABS: Glucose - Point of Care 252 mg/dl (70-99)
[2023-04-08] VITALS (12 sets, daily range): BP systolic 105–147; BP diastolic 43–106; BMI 31.4
[2023-04-08] MEDS: STERILE WATER FOR INJECTION 10 ML IV ×3 (03:24→17:26)
[2023-04-08] MEDS: MAXIPIME 2000 MG IV ×3 (03:25→17:26)
--- NOTE | 2023-04-08 03:58 | PTCARENOTE ---
pt admitted from ED- pt is AAOx3- able to make needs known. VSS. on 3L NC 97%. per patient he does where 2L NC HS. cough noted, unable to cough anything up. pt aware that he needs to collect a urine specimen. pt has been incontinent of urine this
shift so far. pt oriented to room, call chino within reach, care ongoing.
[2023-04-08 04:12] LABS: % Basophils 0.2 % (0-2); % Immature Granulocytes 0.7 % (0-0.5); % Lymphocytes 4.5 % (20.5-51.1); % Monocytes 1.1 % (1.7-9.3); % Neutrophils 93.5 % (42.2-75.2); Absolute Lymphocytes 0.3 10^3/uL (1.2-3.4); Absolute Monocytes 0.1 10^3/uL (0.1-0.6); Absolute Neutrophils 5.2 10^3/uL (1.4-6.5); Hemoglobin 9.4 g/dL (13.0-18.0); Mean Corp Hgb Conc. 30.3 g/dL (33.0-37.0); Mean Corpuscular Hgb 27.9 pg (27.0-31.0); Mean Platelet Volume 8.5 fL (7.4-10.4); Nucleated Red Blood Cells % 0 % (-); Platelet Count 215 10^3/uL (130-400); Red Blood Cell Count 3.37 10^6/uL (4.70-6.10); Red Cell Dist. Width 15.9 % (11.5-14.5); White Blood Cell Count 5.5 10^3/uL (4.8-10.8)
[2023-04-08 04:36] LABS: ALT (SGPT) 38 U/L (0-50); AST (SGOT) 29 U/L (17-59); Albumin 2.7 g/dl (3.5-5.0); Alkaline Phosphatase 75 U/L (38-126); Blood Urea Nitrogen 22 mg/dl (9-20); Calcium 8.5 mg/dl (8.4-10.2); Chloride 95 mmol/L (98-107); Estimated Creatinine Clearance 80 ml/min; Glucose 198 mg/dl (70-99); Magnesium 2.3 mg/dl (1.6-2.3); Potassium 5.3 mmol/L (3.5-5.1); Sodium 137 mmol/L (135-145); Total Bilirubin 0.8 mg/dl (0.2-1.3); Total Protein 5.3 g/dl (6.3-8.2); eGFR > 60.00
[2023-04-08 04:47] LABS: Carbon Dioxide 37 mmol/L (22-30)
[2023-04-08 05:04] LABS: TSH Reflex To Free T4 0.63 uIU/ml (0.47-4.68)
[2023-04-08] MEDS: VANCOCIN 300 MG IV (05:46)
[2023-04-08] MEDS: VANCOCIN 300 ML IV (05:46)
[2023-04-08] MEDS: STRIVERDI RESPIMAT 2 PUFF INH (07:29)
[2023-04-08] MEDS: VENTOLIN NEBULES 2.5 MG INH ×4 (07:29→19:57)
[2023-04-08] MEDS: SPIRIVA RESPIMAT 2.5 MCG 2 PUFF INH (07:29)
[2023-04-08] MEDS: ASPIR LOW (ENTERIC COATED) 81 MG PO (08:08)
[2023-04-08] MEDS: VITAMIN B-12 1000 MCG PO (08:08)
[2023-04-08] MEDS: DECADRON 4 MG IV ×3 (08:08→22:56)
[2023-04-08] MEDS: LASIX 40 MG IV (08:08)
[2023-04-08] MEDS: PROTONIX 40 MG PO (08:08)
[2023-04-08] MEDS: ELIQUIS 5 MG PO ×2 (08:08→20:13)
--- NOTE | 2023-04-08 08:43 | W.PN.CD ---
Today's Communication / Plan
-
Monitor response to furosemide 40 mg IV.
Redose furosemide 80 mg IV this afternoon if no significant UOP.
Aggressively treat COPD. I think this is his primary problem.
Impression / Plan
-
Impression/Plan: 82 yo male with CAD s/p recent CABG (02/2023), COPD on home O2, HTN/HLD, ICMO (LVEF 40-45%), right nephrectomy for prior CA and PAF on apixaban admitted with acute hypoxic respiratory failure requiring BiPAP, pleural effusion s/p
thoracentesis.
#Respiratory insufficiency
-Likely multifactorial including moderate size left pleural effusion, acute left heart failure, pneumonia and COPD.
-Weight is up and O2 requirement has increased.
-Continue antibiotics, monitor response to furosemide 40 mg IV this morning.
-If no significant response, give furosemide 80 mg IV this afternoon (2 PM).
-Aggressively treat COPD given physical exam findings of prolonged expiratory phase, end expiratory wheezing, mild evidence of volume overload.
#Pleural effusion
-S/P thoracentesis for 1250 mL of exudative, dark, thin, hemorrhagic fluid on 04/06/2023.
#Coronary artery disease
-S/P CABG (LAUREN to LAD, SVG to D2, SVG to OM1, SVG to RPDA) on 03/01/2023 (Dr. Spaulding).
-Chest pain free.
-Continue secondary prevention.
#Cardiomyopathy
-Last echo 03/26/2023 ejection fraction 40 to 45% with basal inferior and and inferolateral hypokinesis aortic sclerosis without stenosis.
-GDMT as hemodynamics will tolerate.
#A-fib.
-Chronic, stable.
-Currently in NSR.
-Continue anticoagulation. Not currently on any rate control agents.
-Note amiodarone was discontinued on the last admission suspect this was to avoid possible pulmonary effects.
-Plan for electrical cardioversion after patient's been consistently on anticoagulation for greater than 3 weeks. This was based on patient's prior request to avoid DERIC. Could reconsider timing of getting patient back in rhythm but respiratory
status needs to be improved prior to considering any additional procedures.
#Sleep apnea on CPAP
#History of nephrectomy
Subjective/Interval History:
Weight is up 0.7 kg from yesterday (93.6 <-- 92.9). This is higher than D/C weight form 03/27/2023, but lower than 02/2023.
SaO2 91% on 3LNC (was 96% on 2LNC an hour ago).
Hyperkalemic this morning (5.3).
Feels better, but still some mild work of breathing.
Spud Grader -is Dr. Bhandari
DATA:
Thoracentesis, 04/06/2023:
IMPRESSION: Ultrasound guided diagnostic and therapeutic left thoracentesis (1250 mL of thin, dark, hemorrhagic pleural fluid).
TTE, 03/26/2023:
CONCLUSIONS
�-LV ejection fraction is 40-45%. Abnormal (paradoxical) septal motion
�consistent with postoperative status. Basal inferior/inferolateral hypokinesis.
�-Normal right ventricular size and function.
�-Aortic sclerosis without stenosis.
�-Trace tricuspid regurgitation. Estimated pulmonary artery pressure of 40-45
�mmHg.
�-Trivial pericardial effusion.
�
�No significant change in overall cardiac function since the prior study of
�03/12/2023.� PASP has has increased (previously 20-25 mmHg).
Physical Exam
Vital Signs/Labs
Vital Signs
Temp Pulse Resp BP Pulse Ox
36.8 C 86 25 112/62 91
04/08/23 03:29 04/08/23 08:08 04/08/23 08:06 04/08/23 08:08 04/08/23 08:28
04/06/23 04/07/23 04/08/23
11:59 11:59 11:59
Actual Weight 90.2 kg 93.6 kg
04/08/23 03:41
04/08/23 03:41
Magnesium 2.3 mg/dl (1.6-2.3) 04/08/23 03:41
04/06/23
13:44
Udu-[id number] Pept 7460
LAB Results
04/06/23 04/07/23 04/07/23
13:44 11:28 16:56
Troponin I 0.030 0.028 0.021
Physical Exam
Constitutional: Comfortable
EENT: Anicteric and Moist mucous membranes
Cardiovascular: Rhythm & rate is regular, Pedal edema is absent, JVD pressure is normal, S1S2 is normal and Murmur/rub/gallop absent
Respiratory: Crackles Absent, Rhonchi Absent, Labored respirations and Wheeze Present
GI: Soft, Distention absent, Flat, Non tender and Normal bowel sounds
Neuro/Psych: AO x 3
Data Reviewed
-
Date of Service: April 08, 2023
Medical Decision Making: Reviewed Test Results, Independent Historian Assessment and Test Interpretation
EKG: Tracing Personally Visualized and interpreted and Report Reviewed by me
Echo: Tracing Personally Visualized and interpreted and Report Reviewed by me
X-Ray/CT/US/MRI/NUC/PET: Image Personally Visualized and interpreted and Report Reviewed by me
Medical Tests (PFT, Pathology etc): Report Reviewed by me
Labs: Labs Reviewed by me
[2023-04-08 08:48] LABS: Glucose - Point of Care 184 mg/dl (70-99)
[2023-04-08] MEDS: NOVOLOG FLEXPEN-LOW RESISTANCE 1 UNITS SC ×2 (09:29→17:31)
[2023-04-08 09:36] LABS: Glycohemoglobin (HgbA1c) 6.2 % (4.0-5.6)
--- NOTE | 2023-04-08 10:01 | W.PN.HOSP.TC ---
Today's Communication/Plan
-
Continue diuresis
Continue bronchodilators
Cardiology recommendations appreciated
Will consider pulm consult
Assessment / Plan
Assessment / Plan
Physical Exam
General: No acute distress
HEENT: Normocephalic, Moist Mucous Membranes, 2 liters of nasal cannula oxygen
Respiratory: Decreased Breath Sounds Bilaterally
Cardiac: S1/S2 and Irregular Rhythm
GI: Soft, Nontender and Nondistended. Positive bowel sounds.
Musculoskeletal: No Cyanosis
Skin: Warm and Dry
Neuro: Awake, Alert and Oriented
Psych: Calm
Assessment/Plan
82 yo man with PMH significant for:
CABG 03/01/23,
post-operative persistent A.fib on Eliquis,
COPD, on home oxygen 3 L
post CABG,
CHF,
HTN,
HLD,
right kidney cancer s/p right nephrectomy
Presented to the emergency department due to dyspnea with difficulty breathing, temp of 100.1 F, cough. Requiring BIPAP for respiratory stability. Was Hypoxic at 88% RA and had a respiratory rate of 38. In ED given IV Cefepime, IV Lasix 80,
Duo-Neb, BIPAP 02/27 and NRB. Then had a thoracentesis and 1250 CCs of hemophagic fluid removed. He felt better after this.
82 man with complex SOB from PNA, heart failure, pleural effusion, COPD. 1.25 L bloody fluid removed from lung and he feels better. Cardiology consulted. Family very concerned about prison CHF management. Had a CABG in February.
1. Acute on chronic hypoxic respiratory failure multifactorial likely due to:
A. healthcare associated pneumonia with gram negative bacteria and possibly gram positive bacteria;
-COVID , Flu negative
sputum cx 03/24 positive for P Aeruginosa & MSSA,
Continue treatment as HCAP w broad-spectrum IV abx
-IV Cefepime, IV Vanco
Eval fluid analyses of effusion when available
B. moderate size left pleural effusion, s/p drainage from thoracentesis
C. acute HFrEF;
D. COPD exacerbation
2. COPD exacerbation
Treat COPD exacerbation:
-Duo-Nebs scheduled and prn
-IV steroids TID
-O2 NRB mask at this time, BIPAP prn
-Will consider pulmonary consultation
3. CAD s/p CABG March 01, 2023 �
Cardiology consultation appreciated--No symptoms to suggest angina
continue medical management
-aspirin, statin, Eliquis, PPI
-cycle troponins (negx2 so far)
4. Cardiomyopathy�
Echo 03/26/2023 EF 40 to 45% with basal inferior and and inferolateral hypokinesis aortic sclerosis without stenosis.
Diurese
5. Acute HF with rEF
- IV Lasix 40 mg IV BID
6. A-fib on Eliquis-
- Continue rate control and anticoagulation.
-Plan as noted by cards:
'electrical cardioversion after patient's been consistently on anticoagulation for greater than 3 weeks.�
This was based on patient's prior request to avoid DERIC.�
Could reconsider timing of getting patient back in rhythm but respiratory status needs to be improved prior to considering any additional procedures.'
7. Sleep apnea.
-nightly CPAP
8. Renal cancer s/p nephrectomy - dose meds with care.
Monitor renal function
9. High K - check daily. Should improve with diuresis
10. BG of 248 - supplemental insulin as needed
DVT proph-Eliquis
Full Code
Anticipated Discharge: > 48 hours
Subjective/Interval History
-
Date of Service: April 08, 2023
Patient was seen and examined. He reported he feels better this morning and denied any new complaints.
Objective Data
-
Labs:
Laboratory Results
04/08/23
03:41
WBC 5.5
Hgb 9.4 L
Hct 31.0 L
Plt Count 215 D
Sodium 137
Potassium 5.3 H
Chloride 95 L
Carbon Dioxide 37 H
BUN 22 H
Creatinine 0.8
Glucose 198 H
Calcium 8.5
Total Bilirubin 0.8
AST 29
ALT 38
Alkaline Phosphatase 75
Vital Signs:
Vital Signs
Temp Pulse Resp BP Pulse Ox
98.0 F 86 25 112/62 91
04/08/23 07:19 04/08/23 08:08 04/08/23 08:06 04/08/23 08:08 04/08/23 08:28
[2023-04-08 10:09] LABS: Urine Albumin Negative (Neg - Trace); Urine Bilirubin Negative (Negative); Urine Character Clear (Clear); Urine Color Straw; Urine Glucose Negative (Negative); Urine Ketone Negative (Negative); Urine Leukocyte Negative (Negative); Urine Nitrite Negative (Negative); Urine Occult Blood Negative (Negative); Urine Specific Gravity 1.005 (<1.030); Urine Urobilinogen Negative (Neg - 1+)
--- NOTE | 2023-04-08 11:00 | PHA.VAN.FU ---
Vancomycin Assessment / Plan
- Assessment
Renal Function: SCR Decreasing (SCr 1.0->0.8 (baseline 1.0))
WBC's are: WNL
In the past 24 hrs, patient has been: Afebrile
Concomitant Antimicrobials: cefepime
- Dosing Plan
Continue: vancomycin 1500mg q24h
- Monitoring Plan
No level(s) ordered at this time: consider in the next few days
MRSA Screen: Ordered per protocol (PCR)
- Follow Up
Pharmacy will continue to follow.
Vancomycin Follow UP
- -
Patient Age: 82
Patient Sex: Male
Vancomycin Day #: 2
Indication: Pulmonary/Respiratory
Requesting Provider: Alida
Height / Weight:
Height 5 ft 8 in
Actual Weight 93.6 kg
Pertinent Past Medical History: CABG 03/01/23; home O2,right kidney cancer
- Vital Signs / Lab Results
Temp Pulse Resp BP Pulse Ox
98.0 F 86 30 111/43 96
04/08/23 07:19 04/08/23 10:00 04/08/23 10:00 04/08/23 10:00 04/08/23 10:13
Lab Results - Hematology
04/06/23 04/08/23
13:44 03:41
WBC 8.5 5.5
Lab Results - Chemistry
04/06/23 04/07/23 04/08/23
13:44 11:29 03:41
BUN 16 19 22 H
Creatinine 1.0 1.0 0.8
Estimated Creat Clear 80
Albumin 3.2 L 2.8 L 2.7 L
Lab Results - Urine
04/08/23
09:54
Urine Nitrite (Reflex) Negative
Leukocyte Esterase Rfl Negative
Microbiology Results
04/06/23 17:28 Body Fluid Culture - Preliminary
Pleural Fluid No Growth After 18-24 Hours
Gram Stain - Preliminary
04/06/23 15:58 Blood Culture - Preliminary
Blood/Venous No Growth in 24 hours- Final report to follow
04/06/23 15:58 Blood Culture - Preliminary
Blood/Venous No Growth in 24 hours- Final report to follow
04/06/23 13:44 Influenza Types A & B (ELLIS) - Final
Nasal Swab Negative for Influenza A & B, NAAT
Negative results must be combined with clinical observations
and patient history.
Nucleic Acid Amplification test (NAAT)performed on the
[employer] platform.
[2023-04-08 12:24] LABS: Glucose - Point of Care 265 mg/dl (70-99)
[2023-04-08] MEDS: NOVOLOG FLEXPEN-LOW RESISTANCE 3 UNITS SC (13:44)
--- NOTE | 2023-04-08 15:25 | CM ---
CM met with pt bedside
4th readmission since Feb 2023
Pt is independent at home with spouse
They reside in a [place] with 0STE
Pt is current with HC- requesting GAURANG on dc
He is on 3L baseline with home O2 through [employer]- he has a concentrator and In[employer] per spouse
Therapy following and VN recommended
Referral to [facility] sent for GAURANG- pending
Discharge Disposition- home with [facility]- watch for higher O2 needs
--- NOTE | 2023-04-08 17:01 | PTCARENOTE ---
Patient walked from bed, to window, around bed and then back to chair. Pt sitting in chair since 1200. He remains on 3L, SPO2 91-92%, occasionally up to 96%, Lungs were coarse with expiratory wheeze. He is incontinent of bladder. He has been able to
use the urinal at times of he feels the urge, however, pt stood at bedside and pt was incontinent of large amount of urine. Assessment, care and VS as charted.
[2023-04-08] MEDS: LIPITOR 40 MG PO (17:26)
[2023-04-08 17:42] LABS: Glucose - Point of Care 182 mg/dl (70-99)
[2023-04-08 20:12] LABS: Blood Urea Nitrogen 35 mg/dl (9-20); Calcium 8.9 mg/dl (8.4-10.2); Carbon Dioxide 37 mmol/L (22-30); Chloride 95 mmol/L (98-107); Estimated Creatinine Clearance 46 ml/min; Glucose 200 mg/dl (70-99); Magnesium 2.3 mg/dl (1.6-2.3); Potassium 5.4 mmol/L (3.5-5.1); Sodium 135 mmol/L (135-145); eGFR 50.49
[2023-04-08] MEDS: LOKELMA 10 GRAM PO (20:46)
[2023-04-08 22:30] LABS: Glucose - Point of Care 195 mg/dl (70-99)
[2023-04-09] VITALS (12 sets, daily range): BP systolic 90–131; BP diastolic 43–110; PULSE 89; O2SAT 96; BMI 30.8
[2023-04-09] MEDS: MAXIPIME 2000 MG IV ×3 (03:23→17:45)
[2023-04-09] MEDS: STERILE WATER FOR INJECTION 10 ML IV ×3 (03:23→17:45)
[2023-04-09 03:42] LABS: % Immature Granulocytes 0.3 % (0-0.5); % Monocytes 2.2 % (1.7-9.3); % Neutrophils 92.5 % (42.2-75.2); Absolute Lymphocytes 0.3 10^3/uL (1.2-3.4); Absolute Monocytes 0.1 10^3/uL (0.1-0.6); Absolute Neutrophils 5.6 10^3/uL (1.4-6.5); Hematocrit 29.5 % (39.0-52.0); Hemoglobin 8.9 g/dL (13.0-18.0); Mean Corp Hgb Conc. 30.2 g/dL (33.0-37.0); Mean Corpuscular Hgb 28.3 pg (27.0-31.0); Mean Corpuscular Volume 93.7 fL (80.0-94.0); Mean Platelet Volume 8.6 fL (7.4-10.4); Nucleated Red Blood Cells % 0 % (-); Platelet Count 190 10^3/uL (130-400); Red Blood Cell Count 3.15 10^6/uL (4.70-6.10); Red Cell Dist. Width 16.2 % (11.5-14.5)
[2023-04-09 04:07] LABS: Blood Urea Nitrogen 41 mg/dl (9-20); Calcium 8.6 mg/dl (8.4-10.2); Carbon Dioxide 37 mmol/L (22-30); Chloride 94 mmol/L (98-107); Estimated Creatinine Clearance 58 ml/min; Glucose 201 mg/dl (70-99); Magnesium 2.4 mg/dl (1.6-2.3); Potassium 5.1 mmol/L (3.5-5.1); Sodium 136 mmol/L (135-145); eGFR > 60.00
--- NOTE | 2023-04-09 04:27 | PTCARENOTE ---
assumed care of patient, no acute events overnight. pt remains on 2L NC. no c/o pain. care ongoing.
[2023-04-09] MEDS: VANCOCIN 300 MG IV (05:52)
[2023-04-09] MEDS: VANCOCIN 300 ML IV (05:52)
[2023-04-09] MEDS: VENTOLIN NEBULES 2.5 MG INH ×4 (07:38→20:16)
[2023-04-09] MEDS: SPIRIVA RESPIMAT 2.5 MCG 2 PUFF INH (07:38)
[2023-04-09] MEDS: STRIVERDI RESPIMAT 2 PUFF INH (07:38)
--- NOTE | 2023-04-09 08:30 | W.PN.CD ---
Today's Communication / Plan
-
- IV diuretics today likely switch to PO tomorrow
- AF --> possible SR this AM will obtain ECG
- COPD appears to be main issue
Impression / Plan
-
Impression/Plan: 82 yo male with CAD s/p recent CABG (02/2023), COPD on home O2, HTN/HLD, ICMO (LVEF 40-45%), right nephrectomy for prior CA and PAF on apixaban admitted with acute hypoxic respiratory failure requiring BiPAP, pleural effusion s/p
thoracentesis.
#Respiratory insufficiency
-Likely multifactorial including moderate size left pleural effusion, acute left heart failure, pneumonia and COPD.
-Weight is up and O2 requirement has increased.
-Continue antibiotics
- Weight is down this AM to 202 lbs IV diuretics today, switch to PO tomorrow
-Aggressively treat COPD given physical exam findings of prolonged expiratory phase, end expiratory wheezing, mild evidence of volume overload.
#Pleural effusion
-S/P thoracentesis for 1250 mL of exudative, dark, thin, hemorrhagic fluid on 04/06/2023.
#Coronary artery disease
-S/P CABG (LAUREN to LAD, SVG to D2, SVG to OM1, SVG to RPDA) on 03/01/2023 (Dr. Spaulding).
-Chest pain free.
-Continue secondary prevention.
#Cardiomyopathy
-Last echo 03/26/2023 ejection fraction 40 to 45% with basal inferior and and inferolateral hypokinesis aortic sclerosis without stenosis.
-GDMT as hemodynamics will tolerate.
#A-fib.
-Chronic, stable.
-Currently in NSR.
-Continue anticoagulation. Not currently on any rate control agents.
-Note amiodarone was discontinued on the last admission suspect this was to avoid possible pulmonary effects.
-Possible SR today, will obtain ECG, if not will plan on electrical cardioversion after patient's been consistently on anticoagulation for greater than 3 weeks. This was based on patient's prior request to avoid DERIC. Could reconsider timing of
getting patient back in rhythm but respiratory status needs to be improved prior to considering any additional procedures.
#Sleep apnea on CPAP
#History of nephrectomy
Subjective/Interval History:
Weight is up 0.7 kg from yesterday (93.6 <-- 92.9). This is higher than D/C weight form 03/27/2023, but lower than 02/2023.
SaO2 91% on 3LNC (was 96% on 2LNC an hour ago).
Hyperkalemic this morning (5.3).
Feels better, but still some mild work of breathing.
Development Mechanic -is Dr. Bhandari
DATA:
Thoracentesis, 04/06/2023:
IMPRESSION: Ultrasound guided diagnostic and therapeutic left thoracentesis (1250 mL of thin, dark, hemorrhagic pleural fluid).
TTE, 03/26/2023:
CONCLUSIONS
�-LV ejection fraction is 40-45%. Abnormal (paradoxical) septal motion
�consistent with postoperative status. Basal inferior/inferolateral hypokinesis.
�-Normal right ventricular size and function.
�-Aortic sclerosis without stenosis.
�-Trace tricuspid regurgitation. Estimated pulmonary artery pressure of 40-45
�mmHg.
�-Trivial pericardial effusion.
�
�No significant change in overall cardiac function since the prior study of
�03/12/2023.� PASP has has increased (previously 20-25 mmHg).
Physical Exam
Vital Signs/Labs
Vital Signs
Temp Pulse Resp BP Pulse Ox
98.7 F 64 16 108/59 92
04/09/23 07:23 04/09/23 07:40 04/09/23 07:40 04/09/23 06:00 04/09/23 07:40
04/08/23 04/09/23 04/10/23
06:59 06:59 06:59
Actual Weight 206 lb 5.643 oz 202 lb 6.15 oz
04/09/23 03:29
04/09/23 03:29
Magnesium 2.4 mg/dl (1.6-2.3) H 04/09/23 03:29
04/06/23
13:44
Mly-P-Wsutkqojhgm Pept 7460
LAB Results
04/06/23 04/07/23 04/07/23
13:44 11:28 16:56
Troponin I 0.030 0.028 0.021
Physical Exam
Constitutional: No acute distress
EENT: Anicteric
Cardiovascular: Rhythm & rate is regular (appears regular possible A flutter ) and Pedal edema present (trace)
Respiratory: Respiratory effort normal and Other (poor air movement b/l )
GI: Soft
Neuro/Psych: AO x 3
Data Reviewed
-
Date of Service: April 09, 2023
EKG: Report Reviewed by me
Echo: Report Reviewed by me
Labs: Labs Reviewed by me
[2023-04-09 08:34] LABS: Glucose - Point of Care 194 mg/dl (70-99)
[2023-04-09] MEDS: ELIQUIS 5 MG PO ×2 (08:35→19:50)
[2023-04-09] MEDS: PROTONIX 40 MG PO (08:35)
[2023-04-09] MEDS: NOVOLOG FLEXPEN-LOW RESISTANCE 1 UNITS SC (08:35)
[2023-04-09] MEDS: LASIX 40 MG IV (08:35)
[2023-04-09] MEDS: VITAMIN B-12 1000 MCG PO (08:35)
[2023-04-09] MEDS: ASPIR LOW (ENTERIC COATED) 81 MG PO (08:35)
[2023-04-09] MEDS: DECADRON 4 MG IV ×2 (08:35→16:31)
[2023-04-09 12:38] LABS: Glucose - Point of Care 232 mg/dl (70-99)
--- NOTE | 2023-04-09 12:43 | PN.CDI ---
CDI
- -
CDI:
Physician Documentation Request
Admit Date: 04/06/23 17:47
Dear Doctor Nemesio,
Please review the following and provide your response in the progress notes.
Clinical Indicators:
Pt admitted with Healthcare associated PNA/ Acute on Chronic systolic CHF
Pt being treated with IV diuresis / -IV Cefepime, IV Vanco
On admission HR 106, RR 42, Tmax 100.1 per home meds has been on Azithromycin
Please clarify which of the following most accurately describes the status of the patient's infection:
Sepsis- POA
- Systemic manifestations of infection, with 2 or more SIRS criteria which include:
- Fever >100.4 degrees F or hypothermia < 96.8 degrees F
- Leukocytosis - WBC > 12,000 or leukopenia - WBC < 4,000 or > 10% bands
- Tachycardia > 90 beats per minute
- Tachypnea - RR > 20 breaths per minute or PaCO2 , 32mmHg
Source: Merck Manual 2013
Pneumonia only , Without Systemic Illness
Other
Use of terms such as suspected, likely, concern for, or probable (associated with a specific diagnosis that is being evaluated, monitored, or treated as if it exists) are acceptable and can be coded in the inpatient setting, when documented at the
time of discharge.
Thank you,
Ivania Murphy RN
CDI Specialist
[place] [facility]
Please use your independent medical judgment in providing your response.
--- NOTE | 2023-04-09 12:47 | PN.CDI ---
CDI
- -
CDI:
Physician Documentation Request
Admit Date: 04/06/23 17:47
Dear Doctor Nemesio,
Please review the following and provide your response in the progress notes.
Clinical Indicators:
Pt admitted with Healthcare associated PNA/ Acute on Chronic systolic CHF /Pt being treated with IV diuresis / -IV Cefepime, IV Vanco
Pt with HX of Renal cancer s/p nephrectomy
Renal functions are as below
04/08/23 04/08/23 04/09/23
03:41 19:44 03:29
Creatinine 0.8 1.4 H 1.1
Clarify which of the following accurately represents the patient's renal status:
JOSÉ LUIS
Abnormal lab value of clinical insignificance
Other
Criteria for JOSÉ LUIS*
1 Increase in serum creatinine by > or = to 0.3 mg/dL (> or = to 26.5 micromol/L) within 48 hours, OR
2 Increase in serum creatinine to > or = to 1.5 times baseline, which is known or presumed to have occurred within 7 days, OR
3 Urine volume < 0.5 nL/kg/hour for six hours
Use of terms such as suspected, likely, concern for, or probable (associated with a specific diagnosis that is being evaluated, monitored, or treated as if it exists) are acceptable and can be coded in the inpatient setting, when documented at the
time of discharge.
Thank you,
Ivania Murphy RN
CDI Specialist
[place] [facility]
Please use your independent medical judgment in providing your response.
*Source: Kidney Disease: Improving Global Outcomes (KDIGO) 2012
[2023-04-09] MEDS: NOVOLOG FLEXPEN-LOW RESISTANCE 2 UNITS SC (13:33)
[2023-04-09 17:31] LABS: Glucose - Point of Care 254 mg/dl (70-99)
[2023-04-09] MEDS: NOVOLOG FLEXPEN-MODERATE RESISTANCE 5 UNITS SC (17:44)
[2023-04-09] MEDS: LIPITOR 40 MG PO (17:44)
--- NOTE | 2023-04-09 17:46 | CON.PUL ---
Consultation
Consultation Request
Date/Time Consultation Requested: 04-09-23
Date/Time Consultation Performed: 04-09-23
Requesting Provider: Hospitalist
Performing Provider: Dr Bravo
Reason for Consultation: dyspnea
Medical History
-
Chief Complaint: dyspnea
History of Present Illness:
82-year-old M readm 04-06 with recurrent dyspnea, minimal cough, temp 100.1F. Seen by PCP 04-05, rec CXR, oral CS, azithromycin and ER evaluation. Come to ER 04-06, tachypneic, hypoxemic, started BPAP, CXR deemed positive for pulm edema and also
showed L PF, received L thoracentesis of 1,250 mL of hemorrhagic fluid with improvement of dyspnea. As inpatient continue on atbs (cefepime), dexam IV, BDs, furosemide. Pulm consulted 04-09. At time of visit, sitting in chair, reports that he feels
much better re dyspnea since after adm
Past Medical History
Past Medical History: Other (see A&P for PMH/PSH)
Social History
Tobacco: Former Smoker
Alcohol: Occasional
Drug: None
Personal:
Living: With Family
Family History
Family History: CAD
Allergies / Home Medications
Allergies
Allergy/AdvReac Type Severity Reaction Status Date / Time
No Known Allergies Allergy Verified 03/23/23 17:45
Home Medications
Medication Instructions Recorded Confirmed Last Taken Type
atorvastatin 40 mg tablet 40 mg PO QPM #90 tabs 01/25/23 04/06/23 04/05/23 Rx
acetaminophen 325 mg tablet 650 mg PO Q4HPRN PRN mild 03/06/23 04/06/23 Unknown Rx
pain,headache,temp >101F #0 tabs
pantoprazole 40 mg tablet,delayed 40 mg PO DAILY Gastrointestinal 03/06/23 04/06/23 04/06/23 Rx
release issue #30 tabs
apixaban 5 mg tablet (Eliquis) 5 mg PO BID #60 tabs 03/07/23 04/06/23 04/06/23 Rx
umeclidinium 62.5 mcg-vilanterol 1 inh inhalation R DAILY 03/13/23 04/06/23 04/06/23 History
25 mcg/actuation powdr for
inhalation (Anoro Ellipta)
cyanocobalamin (vitamin B-12) 1,000 mcg PO DAILY #100 tabs 03/15/23 04/06/23 04/06/23 Rx
1,000 mcg tablet
ipratropium 0.5 mg-albuterol 3 mg 3 ml inhalation R Q4HPRN PRN 03/15/23 04/06/23 Unknown Rx
(2.5 mg base)/3 mL nebulization wheezing #90 mL
soln
albuterol sulfate 90 mcg/actuation 2 puff inhalation R Q6 PRN 04/06/23 04/06/23 Unknown History
aerosol inhaler sob/wheezing
aspirin 81 mg tablet,delayed 81 mg PO DAILY 04/06/23 04/06/23 04/06/23 History
release
azithromycin 250 mg tablet 250 mg PO DAILY 04/06/23 04/06/23 04/06/23 History
furosemide 40 mg tablet 20 mg PO DAILY 04/06/23 04/06/23 04/06/23 History
methylprednisolone 4 mg tablets in 4 mg PO .TAPER 04/06/23 04/06/23 04/06/23 History
a dose pack
nitroglycerin 0.4 mg sublingual 0.4 mg sublingual [id number] PRN 04/06/23 04/06/23 Unknown History
tablet chest pain
Review of Systems
-
History Source: Patient
All other systems: Negative unless noted
Respiratory: Cough (mild and improving) and Trouble Breathing
Neuro: Weakness
Vitals / Labs / Diagnostic Testing
Vital Signs
Temp Pulse Resp BP Pulse Ox
98.1 F 89 21 119/97 94
04/09/23 15:34 04/09/23 16:01 04/09/23 16:01 04/09/23 16:33 04/09/23 16:01
Lab Data
04/09/23 03:29
04/09/23 03:29
Microbiology
04/06/23 15:58 Blood/Venous Blood Culture - Preliminary
No Growth in 72 hours- Final report to follow
04/06/23 15:58 Blood/Venous Blood Culture - Preliminary
No Growth in 72 hours- Final report to follow
04/06/23 17:28 Pleural Fluid Body Fluid Culture - Preliminary
No Growth After 48 Hours
04/06/23 17:28 Pleural Fluid Gram Stain - Preliminary
04/08/23 09:54 Urine Legionella Urinary Antigen - Final
Negative for Legionella pneumophila Serogroup 1 antigen.
A negative result does not rule out the possiblity of
Legionella infection due to other serogroups or species of
Legionella. Clinical correlation is recommended.
04/08/23 12:03 Nose Nasal Screen MRSA (PCR) - Final
MRSA not detected - performed by PCR methodology.
04/06/23 13:44 Nasal Swab Influenza Types A & B (ELLIS) - Final
Negative for Influenza A & B, NAAT
Negative results must be combined with clinical observations
and patient history.
Nucleic Acid Amplification test (NAAT)performed on the
[employer] platform.
Diagnostic Testing:
Physical Exam
-
HEENT: Normocephalic and Moist Mucous Membranes
Cardiovascular: Regular Rhythm and Peripheral Edema
Respiratory: Rhonchi and Non-Labored Respirations
GI: Soft, Non Distended and Non Tender
Neurology: Awake, AO x 3 and No Motor Deficits
Skin: Dry
General: Respiratory Distress (n)
Assessment
-
Assessment:
82-year-old M readm 04-06 with recurrent dyspnea, minimal cough, temp 100.1F. Seen by PCP 04-05, rec CXR, oral CS, azithromycin and ER evaluation. Come to ER 04-06, tachypneic, hypoxemic, started BPAP, CXR deemed positive for pulm edema and also
showed L PF, received L thoracentesis of 1,250 mL of hemorrhagic fluid with improvement of dyspnea. As inpatient continue on atbs (cefepime), dexam IV, BDs, furosemide. Pulm consulted 04-09. At time of visit, sitting in chair, reports that he feels
much better re dyspnea since after adm
Impression:
Acute on chronic respiratory failure
HFrEF
L pleural effusion
S/p thoracentesis 1,250 mL of hemorrhagic fluid, exudative, cx negative, cytology pending
Post CABG moderate anemia, currently at Hgb 8.9
Recurrent elevation of BNP
Normal troponins
*Ps aerug and MSSA in sputum cx 03-24, both mainly woodruff-S
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
CABGx4 03-01-23
Post CABG persistent AFib, on apixaban
HTN
HLD
Prostate cancer, s/p surgery and XRT
H/o R kidney cancer s/p resection 1196
CAD
COPD
FRED on CPAP
L TERRY
Nephrolithiasis
Pneumonia
Former smoker: 1 ppd for 66 y til age 67
Plan:
Continue O2 protocol
On home O2 2L since after CABG
Known h/o COPD, follows with outside pulm Darrius Jonas and Tanisha
Considered at acceptable risk for CABG as per outpatient evaluation in Jan 2023
Due to follow Dr Garay on F 04-12
On outpatient umeclidinium/vilanterol (anoro) and albuterol HFA prn
Currently on spiriva and olodaterol, resume anoro upon d/c
Per review of records likely clinical presentation due to combination of HF and AECOPD, compounded by large L PF, he noticed significant relief after thoracentesis and improvement has continued while on diuretic, CS, BDs as well as continuous O2
Per RN POx drop briefly to 88% while on 2L, I see no documentation of testing in EMR
Will check 6MWT in AM
L PF pending cytology (exudate cx negative)
Change dexam IV to pred 40 mg in AM, taper by 10 mg q3d to off, he is not on chronic CS
*Ps aerug and MSSA in sputum cx 03-24, both mainly woodruff-S: unclear if was actually an infectious process during previous adm as he did well without atbs and was d/c (adm 03-23 to 03-27)
No sputum cx collected this adm
Started on cefepime/vanco on adm 04-06
MRSA negative, d/c'ed vanco
Rec to change cefepime to levofloxacin 750 mg qd to complete at least 7 d course through 04-13 or involve ID for further advice
He has developed moderate and at times severe anemia since after CABG, this will compound any acute illness causing out of proportion dyspnea to underlying condition
Rec therapy for anemia, his pre CABG hgb was 14.7, now is down to 8.9
Notice AFib post CABG has been an issue as well, and there were plans to CV once completed at least 3 wks of AC
Cards is following closely, has shown NSR today
D/w Mr Pratt and his who joined over the phone
Pulm ramon appears stable for disposition
Diagnostic tests:
CXRs 04-06 (post L tap) shows residual small L PF and linear atelectasis at L mid zone. 04-05: moderate L PF, linear atelectasis at L mid zone. 03-23: small L PF. Sternotomy wiring, mild pulm vasc congestion
TTE 03-26-23
CONCLUSIONS
-LV ejection fraction is 40-45%. Abnormal (paradoxical) septal motion consistent with postoperative status. Basal inferior/inferolateral hypokinesis.
-Normal right ventricular size and function.
-Aortic sclerosis without stenosis.
-Trace tricuspid regurgitation. Estimated pulmonary artery pressure of 40-45 mmHg.
-Trivial pericardial effusion.
No significant change in overall cardiac function since the prior study of 03/12/2023. PASP has has increased (previously 20-25 mmHg.
--- NOTE | 2023-04-09 18:18 | W.PN.HOSP.TC ---
Today's Communication/Plan
-
Continue diuresis
Consulted pulmonary, recommendations appreciated
Cardiology assistance appreciated
Continue antibiotics
Assessment / Plan
Assessment / Plan
Physical Exam
General: No acute distress
HEENT: Normocephalic, Moist Mucous Membranes, 2 liters of nasal cannula oxygen
Respiratory: Decreased Breath Sounds Bilaterally
Cardiac: S1/S2 and Irregular Rhythm
GI: Soft, Nontender and Nondistended. Positive bowel sounds.
Musculoskeletal: No Cyanosis
Skin: Warm and Dry
Neuro: Awake, Alert and Oriented
Psych: Calm
Assessment/Plan
82 yo man with PMH significant for:
CABG 03/01/23,
post-operative persistent A.fib on Eliquis,
COPD, on home oxygen 3 L
post CABG,
CHF,
HTN,
HLD,
right kidney cancer s/p right nephrectomy
Presented to the emergency department due to dyspnea with difficulty breathing, temp of 100.1 F, cough. Requiring BIPAP for respiratory stability. Was Hypoxic at 88% RA and had a respiratory rate of 38. In ED given IV Cefepime, IV Lasix 80,
Duo-Neb, BIPAP 02/27 and NRB. Then had a thoracentesis and 1250 CCs of hemorrhagic fluid removed. He felt better after this.
82 man with complex SOB from PNA, heart failure, pleural effusion, COPD. 1.25 L bloody fluid removed from lung and he feels better. Cardiology consulted. 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 Had a CABG in February.
1. Acute on chronic hypoxic respiratory failure multifactorial likely due to:
Suspected Sepsis Secondary to Pneumonia
A. healthcare associated pneumonia with gram negative bacteria and possibly gram positive bacteria;
-COVID, Flu negative
sputum cx 03/24 positive for P Aeruginosa & MSSA,
Continue treatment as HCAP w broad-spectrum IV abx
-IV Cefepime
-Stop IV Vanco as MRSA negative
-Results of thoracentesis reviewed
B. moderate size left pleural effusion, s/p drainage from thoracentesis
C. acute HFrEF -- continue intravenous diuresis
D. COPD exacerbation -- consulted pulmonary, recommendations appreciated, continue breathing treatments
2. COPD exacerbation
Treat COPD exacerbation:
-Duo-Nebs scheduled and prn
-IV steroids TID
-O2 NRB mask at this time, BIPAP prn
-Consulted pulmonary, recommendations appreciated
3. CAD s/p CABG March 01, 2023 �
Cardiology consultation appreciated--No symptoms to suggest angina
continue medical management
-aspirin, statin, Eliquis, PPI
-troponins (negx3)
4. Cardiomyopathy�
Echo 03/26/2023 EF 40 to 45% with basal inferior and and inferolateral hypokinesis aortic sclerosis without stenosis.
Diurese
5. Acute HF with rEF
- IV Lasix 40 mg IV daily
6. A-fib on Eliquis-
- Continue rate control and anticoagulation.
-Plan as noted by cards:
'electrical cardioversion after patient's been consistently on anticoagulation for greater than 3 weeks.�
This was based on patient's prior request to avoid DERIC.�
Could reconsider timing of getting patient back in rhythm but respiratory status needs to be improved prior to considering any additional procedures.'
7. Sleep apnea.
-nightly CPAP
8. Renal cancer s/p nephrectomy - dose meds with care.
Suspected JOSÉ LUIS - RESOLVED
Monitor renal function
9. High K - RESOLVED - check daily. Should improve with diuresis
10. 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
DVT proph-Eliquis
Full Code
Anticipated Discharge: > 48 hours
Subjective/Interval History
-
Date of Service: April 09, 2023
Patient was seen and examined. He was sitting up in his chair and was feeling better than yesterday. He was on baseline home oxygen of 2 liters at the time he was seen.
Objective Data
-
Vital Signs:
Vital Signs
Temp Pulse Resp BP Pulse Ox
98.1 F 93 37 121/61 93
04/09/23 15:34 04/09/23 18:00 04/09/23 18:00 04/09/23 18:00 04/09/23 18:00
I&O
04/08/23 04/09/23 04/10/23
06:59 06:59 06:59
Intake Total 1400 / 1400 720 / 720
Output Total 200 / 200
Balance 1200 / 1200 720 / 720
[2023-04-09 21:43] LABS: Glucose - Point of Care 208 mg/dl (70-99)
[2023-04-10] VITALS (11 sets, daily range): BP systolic 100–145; BP diastolic 45–89; BMI 30.9; BMI 30.4
[2023-04-10] MEDS: STERILE WATER FOR INJECTION 10 ML IV ×2 (03:36→10:37)
[2023-04-10] MEDS: MAXIPIME 2000 MG IV ×2 (03:36→10:37)
--- NOTE | 2023-04-10 06:21 | PTCARENOTE ---
no acute events overnight- pt remains on 2L.
[2023-04-10] MEDS: SPIRIVA RESPIMAT 2.5 MCG 2 PUFF INH (07:48)
[2023-04-10] MEDS: STRIVERDI RESPIMAT 2 PUFF INH (07:49)
[2023-04-10] MEDS: VENTOLIN NEBULES 2.5 MG INH ×4 (07:49→19:28)
--- NOTE | 2023-04-10 08:03 | PTCARENOTE ---
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 Patient resting comfortably in bed. AAO, VSS. No events noted overnight. No complaints of pain. Attempt to wean O2 as able, in for 6min walk study on Room Air. Call chino in reach.
[2023-04-10] MEDS: NOVOLOG FLEXPEN-MODERATE RESISTANCE SC (08:13)
[2023-04-10] MEDS: LASIX 40 MG IV (08:14)
[2023-04-10] MEDS: DELTASONE 40 MG PO (08:14)
[2023-04-10] MEDS: PROTONIX 40 MG PO (08:14)
[2023-04-10] MEDS: VITAMIN B-12 1000 MCG PO (08:15)
[2023-04-10] MEDS: ELIQUIS 5 MG PO ×2 (08:15→19:55)
[2023-04-10] MEDS: ASPIR LOW (ENTERIC COATED) 81 MG PO (08:15)
[2023-04-10 08:16] LABS: Glucose - Point of Care 149 mg/dl (70-99)
--- NOTE | 2023-04-10 08:54 | W.PN.CD ---
Today's Communication / Plan
-
standing weight
f/u labs
cm to walker sglt2i and entresto
Impression / Plan
-
Impression/Plan: 82 yo male with CAD s/p recent CABG (02/2023), COPD on home O2, HTN/HLD, ICMO (LVEF 40-45%), right nephrectomy for prior CA and PAF on apixaban admitted with acute hypoxic respiratory failure requiring BiPAP, pleural effusion s/p
thoracentesis.
#Respiratory insufficiency
-Likely multifactorial including moderate size left pleural effusion, acute left heart failure, pneumonia and COPD.
-Weight is up and O2 requirement has increased.
-Continue antibiotics
- Weight is up today, but patient doesn't recall being weighed, will ask for a standing scale
- Weight not all that different from admission otherwise, would likely benefit for additional IV pm dose if labs stable
-Aggressively treat COPD given physical exam findings of prolonged expiratory phase, end expiratory wheezing, mild evidence of volume overload.
# Acute heart failure with mreduced ef
-diuresing
-GDMT limited by JOS[facility] LUIS last month and copd
-given recoveray of kidney function will ask cm to walker sglt2-1 and entresto and consider adding on discharge
#Pleural effusion
-S/P thoracentesis for 1250 mL of exudative, dark, thin, hemorrhagic fluid on 04/06/2023.
#Coronary artery disease
-S/P CABG (LAUREN to LAD, SVG to D2, SVG to OM1, SVG to RPDA) on 03/01/2023 (Dr. Spaulding).
-Chest pain free.
-Continue secondary prevention.
#Cardiomyopathy
-Last echo 03/26/2023 ejection fraction 40 to 45% with basal inferior and and inferolateral hypokinesis aortic sclerosis without stenosis.
-GDMT as hemodynamics will tolerate.
#A-fib.
-Chronic, stable.
-Currently in NSR.
-Continue anticoagulation. Not currently on any rate control agents.
-Note amiodarone was discontinued on the last admission suspect this was to avoid possible pulmonary effects.
#Sleep apnea on CPAP
#History of nephrectomy
Subjective/Interval History:
Weight is up? but he doesn't remember being weighed, denies dyspnea but sob with conversation
Feels better, but still some mild work of breathing.
Medicaid Plan Compliance Director -is Dr. Bhandari
DATA:
Thoracentesis, 04/06/2023:
IMPRESSION: Ultrasound guided diagnostic and therapeutic left thoracentesis (1250 mL of thin, dark, hemorrhagic pleural fluid).
TTE, 03/26/2023:
CONCLUSIONS
�-LV ejection fraction is 40-45%. Abnormal (paradoxical) septal motion
�consistent with postoperative status. Basal inferior/inferolateral hypokinesis.
�-Normal right ventricular size and function.
�-Aortic sclerosis without stenosis.
�-Trace tricuspid regurgitation. Estimated pulmonary artery pressure of 40-45
�mmHg.
�-Trivial pericardial effusion.
�
�No significant change in overall cardiac function since the prior study of
�03/12/2023.� PASP has has increased (previously 20-25 mmHg).
Physical Exam
Vital Signs/Labs
Vital Signs
Temp Pulse Resp BP Pulse Ox
97.9 F 68 18 145/65 93
04/10/23 07:30 04/10/23 08:14 04/10/23 07:53 04/10/23 08:14 04/10/23 08:38
04/09/23 04/10/23 04/11/23
06:59 06:59 06:59
Actual Weight 91.8 kg 92.1 kg
04/09/23 03:29
04/09/23 03:29
Magnesium 2.4 mg/dl (1.6-2.3) H 04/09/23 03:29
04/06/23
13:44
Jcs-O-[id number] Pept 7460
LAB Results
04/07/23 04/07/23
11:28 16:56
Troponin I 0.028 0.021
Physical Exam
Constitutional: No acute distress
Cardiovascular: Rhythm & rate is regular, Pedal edema is absent and JVD present (11cm H20)
Respiratory: Respiratory effort normal, Lungs clear to auscul., Wheeze Absent and Crackles Absent
Neuro/Psych: AO x 3
Data Reviewed
-
Date of Service: April 10, 2023
--- NOTE | 2023-04-10 09:53 | W.PN.PUL3 ---
Today's Communication / Plan
-
O2
BDs
CS
Atb
Assessment
-
Assessment:
82-year-old M readm 04-06 with recurrent dyspnea, minimal cough, temp 100.1F. Seen by PCP 04-05, rec CXR, oral CS, azithromycin and ER evaluation. Come to ER 04-06, tachypneic, hypoxemic, started BPAP, CXR deemed positive for pulm edema and also
showed L PF, received L thoracentesis of 1,250 mL of hemorrhagic fluid with improvement of dyspnea. As inpatient continue on atbs (cefepime), dexam IV, BDs, furosemide. Pulm consulted 04-09. At time of visit, sitting in chair, reports that he feels
much better re dyspnea since after adm
Impression:
Acute on chronic respiratory failure
HFrEF
L pleural effusion
S/p thoracentesis 1,250 mL of hemorrhagic fluid, exudative, cx negative, cytology pending
Post CABG moderate anemia, currently at Hgb 8.9
Recurrent elevation of BNP
Normal troponins
*Ps aerug and MSSA in sputum cx 03-24, both mainly woodruff-S
Conditions PANTOGRAPHER:
CABGx4 03-01-23
Post CABG persistent AFib, on apixaban
HTN
HLD
Prostate cancer, s/p surgery and XRT
H/o R kidney cancer s/p resection 1196
CAD
COPD
FRED on CPAP
L TERRY
Nephrolithiasis
Pneumonia
Former smoker: 1 ppd for 66 y til age 67
Plan:
Continue O2 protocol
On home O2 2L since after CABG
Currently at O2 2L, POx 96% at rest
Known h/o COPD, follows with outside pulm Darrius Jonas and Tanisha
Considered at acceptable risk for CABG as per outpatient evaluation in Jan 20[address]
Due to follow Dr Garay on F 04-12
On outpatient umeclidinium/vilanterol (anoro) and albuterol HFA prn
Currently on spiriva and olodaterol, resume anoro upon d/c
Per review of records likely clinical presentation due to combination of HF and AECOPD, compounded by large L PF
He noticed significant relief after thoracentesis and improvement has continued while on diuretic, CS, BDs as well as continuous O2
6MWT 04-10, reviewed (report appears as test done on 04-06 but was actually done 04-10, d/w RT)
Hypoxemia on RA at 87%, down to 86% at 2 min walking, added O2 2L, increased up to 3L to keep POx 88%, no dyspnea on exertion, 300ft walking distance
Rec to keep O2 at 2L at rest, and 4L on exertion
HFrEF ramon, Cards following, GDMT was limited due to JOS[facility] LUIS and COPD
Continues on IV lasix
Wt on adm 04-06 was 203 lbs and has decreased to 200 lbs 04-10
L PF pending cytology (exudate cx negative)
Changed dexam IV to pred 40 mg in AM 04-10, taper by 10 mg q3d to off, he is not on chronic CS
*Ps aerug and MSSA in sputum cx 03-24, both mainly woodruff-S: unclear if was actually an infectious process during previous adm as he did well without atbs and was d/c (adm 03-23 to 03-27)
No sputum cx collected this adm
Started on cefepime/vanco on adm 04-06
MRSA negative, d/c'ed vanco
Rec to change cefepime to levofloxacin 750 mg qd to complete at least 7 d course through 04-13
QTc at 416 ms on 04-10
He has developed moderate and at times severe anemia since after CABG, this will compound any acute illness causing out of proportion dyspnea to underlying condition
Rec therapy for anemia, his pre CABG hgb was 14.7, now is down to 8.9
Notice AFib post CABG has been an issue as well, and there were plans to CV once completed at least 3 wks of AC
Cards is following closely, has shown NSR since 04-09
Has refused CPAP since adm, states will return to CPAP once back at home
D/w Mr Pratt and his who joined over the phone 04-09
Disposition efforts
Due to follow Dr Garay on F 04-12 (outside pulm)
Diagnostic tests:
CXRs 04-06 (post L tap) shows residual small L PF and linear atelectasis at L mid zone. 04-05: moderate L PF, linear atelectasis at L mid zone. 03-23: small L PF. Sternotomy wiring, mild pulm vasc congestion
TTE 03-26-23
CONCLUSIONS
-LV ejection fraction is 40-45%. Abnormal (paradoxical) septal motion consistent with postoperative status. Basal inferior/inferolateral hypokinesis.
-Normal right ventricular size and function.
-Aortic sclerosis without stenosis.
-Trace tricuspid regurgitation. Estimated pulmonary artery pressure of 40-45 mmHg.
-Trivial pericardial effusion.
No significant change in overall cardiac function since the prior study of 03/12/2023. PASP has has increased (previously 20-25 mmHg).
Subjective Data
-
Date of Service:
Date of Service: April 10, 2023
Chief Complaint: Pulmonary Follow Up
Subjective:
No major events reported
Realizes he has to take action on life style modification, e.g. salt and oral fluid consumption restriction
Review of Systems
General: Fever (n), Sweats (n), Chills (n) and Satisfactory Appetite
HEENT: Epistaxis (n) and Dysphagia (n)
Cardiopulmonary: Dyspnea on Exertion, Cough, Sputum Production (n), Wheezing (n), Edema (n) and Hemoptysis (n)
GI: Abdominal Pain (n), Nausea (n) and Vomiting (n)
Neuro: Weakness
Objective Data
Data Reviewed
Vital Signs / I&O / Oxygen:
Vital Signs
Temp Pulse Resp BP Pulse Ox
97.9 F 68 18 145/65 93
04/10/23 07:30 04/10/23 08:14 04/10/23 07:53 04/10/23 08:14 04/10/23 08:38
Intake and Output
04/09/23 04/10/23 04/11/23
06:59 06:59 06:59
Intake Total 1400 / 1400 720 / 720 480 / 480
Output Total 200 / 200
Balance 1200 / 1200 720 / 720 480 / 480
SaO2 93
Nasal Cannula flow liters per 2
minute
Physical Exam
General: Comfortable
HEENT: Normocephalic and Moist Mucous Membranes
Cardiovascular: Regular Rhythm, Murmur (n), Peripheral Edema (n) and Calf Tenderness (n)
Respiratory: Rhonchi, Non-Labored Respirations and Stridor (n)
GI: Soft, Non Distended and Non Tender
Neurology: Awake, AO x 3 and No Motor Deficits
Skin: Dry
Labs/Micro/Reports
Microbiology
04/06/23 15:58 Blood/Venous Blood Culture - Preliminary
No Growth in 72 hours- Final report to follow
04/06/23 15:58 Blood/Venous Blood Culture - Preliminary
No Growth in 72 hours- Final report to follow
04/06/23 17:28 Pleural Fluid Body Fluid Culture - Preliminary
No Growth After 48 Hours
04/06/23 17:28 Pleural Fluid Gram Stain - Preliminary
04/08/23 09:54 Urine Legionella Urinary Antigen - Final
Negative for Legionella pneumophila Serogroup 1 antigen.
A negative result does not rule out the possiblity of
Legionella infection due to other serogroups or species of
Legionella. Clinical correlation is recommended.
04/08/23 12:03 Nose Nasal Screen MRSA (PCR) - Final
MRSA not detected - performed by PCR methodology.
[2023-04-10 10:58] LABS: % Immature Granulocytes 0.7 % (0-0.5); % Lymphocytes 3.3 % (20.5-51.1); % Monocytes 3.8 % (1.7-9.3); % Neutrophils 92.2 % (42.2-75.2); Absolute Immature Granulocytes 0.1 10^3/uL (0-0.05); Absolute Lymphocytes 0.2 10^3/uL (1.2-3.4); Absolute Monocytes 0.3 10^3/uL (0.1-0.6); Absolute Neutrophils 6.5 10^3/uL (1.4-6.5); Hematocrit 32.1 % (39.0-52.0); Hemoglobin 9.6 g/dL (13.0-18.0); Mean Corp Hgb Conc. 29.9 g/dL (33.0-37.0); Mean Corpuscular Hgb 27.7 pg (27.0-31.0); Mean Corpuscular Volume 92.5 fL (80.0-94.0); Mean Platelet Volume 8.6 fL (7.4-10.4); Nucleated Red Blood Cells % 0.4 % (-); Platelet Count 213 10^3/uL (130-400); Red Blood Cell Count 3.47 10^6/uL (4.70-6.10); Red Cell Dist. Width 16.2 % (11.5-14.5); White Blood Cell Count 7.1 10^3/uL (4.8-10.8)
[2023-04-10] MEDS: LEVAQUIN PO (11:25)
[2023-04-10 12:33] LABS: ALT (SGPT) 39 U/L (0-50); AST (SGOT) 29 U/L (17-59); Alkaline Phosphatase 65 U/L (38-126); Blood Urea Nitrogen 42 mg/dl (9-20); Calcium 8.7 mg/dl (8.4-10.2); Carbon Dioxide 35 mmol/L (22-30); Chloride 91 mmol/L (98-107); Estimated Creatinine Clearance 58 ml/min; Glucose 237 mg/dl (70-99); Magnesium 2.3 mg/dl (1.6-2.3); Potassium 4.8 mmol/L (3.5-5.1); Sodium 135 mmol/L (135-145); Total Protein 5.5 g/dl (6.3-8.2); eGFR > 60.00
[2023-04-10 12:54] LABS: Glucose - Point of Care 193 mg/dl (70-99)
[2023-04-10] MEDS: NOVOLOG FLEXPEN-MODERATE RESISTANCE 1 UNITS SC (13:23)
[2023-04-10 17:55] LABS: Glucose - Point of Care 341 mg/dl (70-99)
[2023-04-10] MEDS: LIPITOR 40 MG PO (18:18)
[2023-04-10] MEDS: NOVOLOG FLEXPEN-MODERATE RESISTANCE 7 UNITS SC (18:18)
--- NOTE | 2023-04-10 18:36 | W.PN.HOSP.TC ---
Today's Communication/Plan
-
Please see below
Assessment / Plan
Assessment / Plan
Physical Exam
General: No acute distress
HEENT: Normocephalic, Moist Mucous Membranes, 2 liters of nasal cannula oxygen
Respiratory: Decreased Breath Sounds Bilaterally
Cardiac: S1/S2 and Irregular Rhythm
GI: Soft, Nontender and Nondistended. Positive bowel sounds.
Musculoskeletal: No Cyanosis
Skin: Warm and Dry
Neuro: Awake, Alert and Oriented
Psych: Calm
Assessment/Plan
82 yo man with PMH significant for:
CABG 03/01/23,
post-operative persistent A.fib on Eliquis,
COPD, on home oxygen 3 L
post CABG,
CHF,
HTN,
HLD,
right kidney cancer s/p right nephrectomy
Presented to the emergency department due to dyspnea with difficulty breathing, temp of 100.1 F, cough. Requiring BIPAP for respiratory stability. Was Hypoxic at 88% RA and had a respiratory rate of 38. In ED given IV Cefepime, IV Lasix 80,
Duo-Neb, BIPAP 02/27 and NRB. Then had a thoracentesis and 1250 CCs of hemorrhagic fluid removed. He felt better after this.
82 man with complex SOB from PNA, heart failure, pleural effusion, COPD. 1.25 L bloody fluid removed from lung and he feels better. Cardiology consulted. Family very concerned about technician terminal and repeater CHF management. Had a CABG in February.
1. Acute on chronic hypoxic respiratory failure multifactorial likely due to:
Suspected Sepsis Secondary to Pneumonia
A. healthcare associated pneumonia with gram negative bacteria and possibly gram positive bacteria;
-COVID, Flu negative
sputum cx 03/24 positive for P Aeruginosa & MSSA,
Continue treatment as HCAP w broad-spectrum IV abx
-IV Cefepime
-Stop IV Vanco as MRSA negative
-Results of thoracentesis reviewed
B. moderate size left pleural effusion, s/p drainage from thoracentesis
C. acute HFrEF -- continue intravenous diuresis
D. COPD exacerbation -- consulted pulmonary, recommendations appreciated, continue breathing treatments
2. COPD exacerbation
Treat COPD exacerbation:
-Duo-Nebs scheduled and prn
-IV steroids TID
-O2 NRB mask at this time, BIPAP prn
-Consulted pulmonary, recommendations appreciated
3. CAD s/p CABG March 01, 2023 �
Cardiology consultation appreciated--No symptoms to suggest angina
continue medical management
-aspirin, statin, Eliquis, PPI
-troponins (negx3)
4. Cardiomyopathy�
Echo 03/26/2023 EF 40 to 45% with basal inferior and and inferolateral hypokinesis aortic sclerosis without stenosis.
Diuresis
5. Acute HF with rEF
- IV Lasix 40 mg IV daily
- Consulted cardiology, recommendations appreciated
-GDMT was previously limited by JOSÉ LUIS last month and copd, but given improvement in kidney function cardiology will ask cm to walker sglt2-1 and entresto and then considering adding on discharge med
regimen
6. A-fib on Eliquis-
- Continue rate control and anticoagulation.
- Amiodarone was previously discontinued due to avoid possible pulmonary effects
- Plan as noted by cards:
'electrical cardioversion after patient's been consistently on anticoagulation for greater than 3 weeks.�
This was based on patient's prior request to avoid DERIC.�
Could reconsider timing of getting patient back in rhythm but respiratory status needs to be improved prior to considering any additional procedures.'
7. Sleep apnea.
-nightly CPAP
8. Renal cancer s/p nephrectomy - dose meds with care.
Suspected JOSÉ LUIS - RESOLVED
Monitor renal function
9. High K - RESOLVED - check daily. Should improve with diuresis
10. BG of 248 - supplemental insulin as needed - consulted Diabetes TAP OUT OPERATOR, evaluation and recommendations appreciated
DVT proph-Eliquis
Full Code
I spoke to patient's daughter Haley on April 10, 2023. All questions and concerns were answered to satisfaction.
Anticipated Discharge: > 48 hours
Subjective/Interval History
-
Date of Service: April 10, 2023
Patient was seen and examined. Although he denied any new chest pain or shortness of breath, he was very concerned about how he could maintain a low sodium diet.
Objective Data
-
Labs:
Laboratory Results
04/10/23
10:50
WBC 7.1
Hgb 9.6 L
Hct 32.1 L
Plt Count 213
Sodium 135
Potassium 4.8
Chloride 91 L
Carbon Dioxide 35 H
BUN 42 H
Creatinine 1.1
Glucose 237 H
Calcium 8.7
Total Bilirubin 1.0
AST 29
ALT 39
Alkaline Phosphatase 65
Vital Signs:
Vital Signs
Temp Pulse Resp BP Pulse Ox
98.0 F 85 16 145/65 93
04/10/23 11:44 04/10/23 16:02 04/10/23 16:02 04/10/23 08:14 04/10/23 16:02
I&O
04/09/23 04/10/23 04/11/23
06:59 06:59 06:59
Intake Total 1400 / 1400 720 / 720 480 / 480
Output Total 200 / 200
Balance 1200 / 1200 720 / 720 480 / 480
[2023-04-10 20:41] LABS: Glucose - Point of Care 413 mg/dl (70-99)
[2023-04-10 20:55] LABS: Glucose 299 mg/dl (70-99)
--- NOTE | 2023-04-10 23:35 | PTCARENOTE ---
Addendum entered by Clarissa Bourgeois RN 04/11/23 07:33:
Pt HS glucose HH, lab drawn resulted 299. Recheck 200. Night TOUR ACTOR on floor and notified, no new orders.
Original Note:
Assumed care of Pt from day RN. Pt AAOx3 able to make needs known. Pt Spo2 92 on 2L while sitting in chair. Pt had no complaints at this time. Call chino within reach. Assessment care and vitals as charted.
[2023-04-11] VITALS (8 sets, daily range): BP systolic 92–131; BP diastolic 48–76; PULSE 91; O2SAT 95; BMI 30.7
[2023-04-11 00:51] LABS: Glucose - Point of Care 200 mg/dl (70-99)
[2023-04-11] MEDS: SPIRIVA RESPIMAT 2.5 MCG 2 PUFF INH (07:26)
[2023-04-11] MEDS: VENTOLIN NEBULES 2.5 MG INH ×3 (07:26→15:26)
[2023-04-11] MEDS: STRIVERDI RESPIMAT 2 PUFF INH (07:26)
--- NOTE | 2023-04-11 07:49 | W.PN.CD ---
Today's Communication / Plan
-
Transition to lasix 40mg daily
Pending CM pricing on SGLTi and Entresto
Impression / Plan
-
Impression/Plan: 82 yo male with CAD s/p recent CABG (02/2023), COPD on home O2, HTN/HLD, ICMO (LVEF 40-45%), right nephrectomy for prior CA and PAF on apixaban admitted with acute hypoxic respiratory failure requiring BiPAP, pleural effusion s/p
thoracentesis.
#Respiratory insufficiency, overall improved and he is feeling much better
-Likely multifactorial including moderate size left pleural effusion, acute left heart failure, pneumonia and COPD.
-Weight is up and O2 requirement has increased.
-Continue antibiotics
- He appears euvolemic on exam will transition back to PO diuretics
-Aggressively treat COPD-->Improving
# Acute heart failure with mreduced ef
-diuresing
-GDMT limited by JOS[facility] LUIS last month and copd
-given recovery of kidney function will ask cm to walker sglt2-1 and entresto and consider adding on discharge
#Pleural effusion
-S/P thoracentesis for 1250 mL of exudative, dark, thin, hemorrhagic fluid on 04/06/2023.
#Coronary artery disease
-S/P CABG (LAUREN to LAD, SVG to D2, SVG to OM1, SVG to RPDA) on 03/01/2023 (Dr. Spaulding).
-Chest pain free.
-Continue secondary prevention.
#Cardiomyopathy
-Last echo 03/26/2023 ejection fraction 40 to 45% with basal inferior and and inferolateral hypokinesis aortic sclerosis without stenosis.
-GDMT as hemodynamics will tolerate.
#A-fib.
-Chronic, stable.
-Currently in NSR.
-Continue anticoagulation. Not currently on any rate control agents.
-Note amiodarone was discontinued on the last admission suspect this was to avoid possible pulmonary effects.
#Sleep apnea on CPAP
#History of nephrectomy
Subjective/Interval History:
Weight stable, transition to PO diuretics
Pending pricing on SGLTi and/or Entresto
Key Account Manager -is Dr. Bhandari
DATA:
Thoracentesis, 04/06/2023:
IMPRESSION: Ultrasound guided diagnostic and therapeutic left thoracentesis (1250 mL of thin, dark, hemorrhagic pleural fluid).
TTE, 03/26/2023:
CONCLUSIONS
�-LV ejection fraction is 40-45%. Abnormal (paradoxical) septal motion
�consistent with postoperative status. Basal inferior/inferolateral hypokinesis.
�-Normal right ventricular size and function.
�-Aortic sclerosis without stenosis.
�-Trace tricuspid regurgitation. Estimated pulmonary artery pressure of 40-45
�mmHg.
�-Trivial pericardial effusion.
�
�No significant change in overall cardiac function since the prior study of
�03/12/2023.� PASP has has increased (previously 20-25 mmHg).
Physical Exam
Vital Signs/Labs
Vital Signs
Temp Pulse Resp BP Pulse Ox
97.3 F 71 16 124/63 96
04/11/23 03:57 04/11/23 07:30 04/11/23 07:30 04/11/23 06:00 04/11/23 07:30
04/10/23 04/11/23 04/12/23
06:59 06:59 06:59
Actual Weight 203 lb 0.732 oz 201 lb 15.095 oz
04/10/23 10:50
04/10/23 20:34
Magnesium 2.3 mg/dl (1.6-2.3) 04/10/23 10:50
04/06/23
13:44
[id number]-L-[id number] Pept 7460
Physical Exam
Constitutional: No acute distress
EENT: Anicteric
Cardiovascular: Rhythm & rate is regular and Pedal edema is absent
Respiratory: Respiratory effort normal and Wheeze Present (slight expiratory wheeze )
GI: Soft
Neuro/Psych: AO x 3
Data Reviewed
-
Date of Service: April 11, 2023
EKG: Report Reviewed by me
Echo: Report Reviewed by me
Labs: Labs Reviewed by me
--- NOTE | 2023-04-11 08:35 | PN.DE.MGMTRT ---
Insulin Management
- -
04/11/2023 Diabetes Management Consult
Patient admitted 04/06 with increased SOB, CHF, pleural effusion, pneumonia. A1C reflects pre diabetes, 6.2%. PMH COPD, CHF, CAD s/p CABG x 4 03/01/23 here, HTN, HCL, Afib. A1C 6.2, cr 1.1, egfr >60.
Patient has been on IV steroids, transitioned to oral prednisone. Glucose has been as high as 413 yesterday.
Will give 15 units of lantus now and add Farxiga 10 mg daily. Steroids to be tapered down by 10 mg every 3 days. Hopefully will not need lantus at discharge.
Diabetes History
- -
Pre-Admission Diabetes Regimen
04/10/23
10:50
Creatinine 1.1
Lab Results
Hemoglobin A1c 6.2 % (4.0-5.6) H 04/08/23 03:41
Insulin Pump Settings
IP Diabetes Regimen
04/10/23 04/10/23 04/10/23
10:50 12:42 17:44
Glucose 237 H
POC Glucose 193 H 341 H
04/10/23 04/10/23 04/11/23
20:25 20:34 00:39
Glucose 299 H
POC Glucose 413 H 200 H
Meal type: Dinner
Meal type: Lunch
Patient Education
[2023-04-11 08:49] LABS: Glucose - Point of Care 117 mg/dl (70-99)
[2023-04-11] MEDS: LEVAQUIN 750 MG PO (09:17)
[2023-04-11] MEDS: NOVOLOG FLEXPEN-MODERATE RESISTANCE SC (09:17)
[2023-04-11] MEDS: PROTONIX 40 MG PO (09:17)
[2023-04-11] MEDS: ASPIR LOW (ENTERIC COATED) 81 MG PO (09:17)
[2023-04-11] MEDS: ELIQUIS 5 MG PO (09:18)
[2023-04-11] MEDS: VITAMIN B-12 1000 MCG PO (09:18)
[2023-04-11] MEDS: LASIX 40 MG IV (09:18)
[2023-04-11] MEDS: DELTASONE 40 MG PO (09:18)
--- NOTE | 2023-04-11 09:37 | PTCARENOTE ---
Patient incontinent of bladder overnight, attends changed, pericare performed. Pt up to chair for breakfast. He has no complaints other than he is 'bored.' Assessment, care and VS as charted.
[2023-04-11] MEDS: FARXIGA 10 MG PO (10:31)
[2023-04-11] MEDS: LANTUS 0.149999999999999994 UNITS SC (10:31)
[2023-04-11 12:54] LABS: Glucose - Point of Care 232 mg/dl (70-99)
[2023-04-11] MEDS: NOVOLOG FLEXPEN-MODERATE RESISTANCE 3 UNITS SC (12:54)
--- NOTE | 2023-04-11 13:00 | W.PN.PUL3 ---
Today's Communication / Plan
-
O2
BDs
CS
Atb
Patient being prepared for discharge home. Pulmonary service will sign off. Reconsult if respiratory issues deteriorate or if there are any additional questions or concerns.
Assessment
-
Assessment:
82-year-old M readm 04-06 with recurrent dyspnea, minimal cough, temp 100.1F. Seen by PCP 04-05, rec CXR, oral CS, azithromycin and ER evaluation. Come to ER 04-06, tachypneic, hypoxemic, started BPAP, CXR deemed positive for pulm edema and also
showed L PF, received L thoracentesis of 1,250 mL of hemorrhagic fluid with improvement of dyspnea. As inpatient continue on atbs (cefepime), dexam IV, BDs, furosemide. Pulm consulted 04-09. At time of visit, sitting in chair, reports that he feels
much better re dyspnea since after adm
Impression:
Acute on chronic respiratory failure
HFrEF
L pleural effusion
S/p thoracentesis 1,250 mL of hemorrhagic fluid, exudative, cx negative, cytology negative for malignant cells
Post CABG moderate anemia, last Hb 9.6 on 04/10/2023
Recurrent elevation of BNP
Normal troponins
*Ps aerug and MSSA in sputum cx 03-24, both mainly woodruff-S
Conditions TRAINING MGR:
CABGx4 03-01-23
Post CABG persistent AFib, on apixaban
HTN
HLD
Prostate cancer, s/p surgery and XRT
H/o R kidney cancer s/p resection 1196
CAD
COPD
FRED on CPAP
L TERRY
Nephrolithiasis
Pneumonia
Former smoker: 1 ppd for 66 y til age 67
Plan:
Continue O2 protocol with goal SpO2 >88%
On home O2 2L since after CABG
Known h/o COPD, follows with outside pulm Darrius Jonas and Tanisha
Considered at acceptable risk for CABG as per outpatient evaluation in Jan 2023
Due to follow Dr Garay on F 04-12
On outpatient umeclidinium/vilanterol (anoro) and albuterol HFA prn
Currently on spiriva and olodaterol, resume anoro upon d/c
Per Dr. Wilde: Per review of records likely clinical presentation due to combination of HF and AECOPD, compounded by large L PF
He noticed significant relief after thoracentesis and improvement has continued while on diuretic, CS, BDs as well as continuous O2
6MWT 04-10, reviewed (report appears as test done on 04-06 but was actually done 04-10, d/w RT)
Hypoxemia on RA at 87%, down to 86% at 2 min walking, added O2 2L, increased up to 3L to keep POx 88%, no dyspnea on exertion, 300ft walking distance
Rec to keep O2 at 2L at rest, and 4L on exertion
HFrEF ramon, Cards following, GDMT was limited due to JOSÉ LUIS and COPD
Continues on IV lasix
Wt on adm 04-06 was 203 lbs and has decreased to 200 lbs 04-10
L PF cytology negative for malignancy
Changed dexam IV to pred 40 mg in AM 04-10, taper by 10 mg q3d to off, he is not on chronic CS
*Ps aerug and MSSA in sputum cx 03-24, both mainly woodruff-S: unclear if was actually an infectious process during previous adm as he did well without atbs and was d/c (adm 03-23 to 03-27)
No sputum cx collected this adm
Started on cefepime/vanco on adm 04-06
MRSA negative, d/c'ed vanco
Rec to change cefepime to levofloxacin 750 mg qd to complete at least 7 d course through 04-13
QTc at 416 ms on 04-10
He has developed moderate and at times severe anemia since after CABG, this will compound any acute illness causing out of proportion dyspnea to underlying condition
Rec therapy for anemia, his pre CABG hgb was 14.7, now is down to 9.6
Notice AFib post CABG has been an issue as well, and there were plans to CV once completed at least 3 wks of AC
Cards is following closely, has shown NSR since 04-09
Has refused CPAP since adm, states will return to CPAP once back at home
Dr. Wilde had d/w Mr Pratt and his who joined over the phone 04-09
Disposition efforts
Due to follow Dr Garay on F 04-12 (outside pulm)
(Patient was seen and evaluated on 04/11/2023).
Diagnostic tests:
CXRs 04-06 (post L tap) shows residual small L PF and linear atelectasis at L mid zone. 04-05: moderate L PF, linear atelectasis at L mid zone. 03-23: small L PF. Sternotomy wiring, mild pulm vasc congestion
TTE 03-26-23
CONCLUSIONS
-LV ejection fraction is 40-45%. Abnormal (paradoxical) septal motion consistent with postoperative status. Basal inferior/inferolateral hypokinesis.
-Normal right ventricular size and function.
-Aortic sclerosis without stenosis.
-Trace tricuspid regurgitation. Estimated pulmonary artery pressure of 40-45 mmHg.
-Trivial pericardial effusion.
No significant change in overall cardiac function since the prior study of 03/12/2023. PASP has has increased (previously 20-25 mmHg).
Subjective Data
-
Date of Service:
Date of Service: April 11, 2023
Chief Complaint: Pulmonary Follow Up
Subjective:
Seen and evaluated today. Had breakfast in chair with no complaints. No acute events reported overnight. Eager to go home and he is bored.
Review of Systems
General: Other (Negative unless mentioned above)
Objective Data
Data Reviewed
Vital Signs / I&O / Oxygen:
Vital Signs
Temp Pulse Resp BP Pulse Ox
98.5 F 82 16 98/52 94
04/11/23 11:55 04/11/23 15:26 04/11/23 15:26 04/11/23 12:01 04/11/23 15:26
Intake and Output
04/11/23 04/12/23 04/13/23
06:59 06:59 06:59
Intake Total 1460 / 1460
Balance 1460 / 1460
SaO2 94
Nasal Cannula flow liters per 2
minute
Physical Exam
General: Comfortable
HEENT: Normocephalic, Anicteric and Moist Mucous Membranes
Cardiovascular: S1-S2, Murmur (n), Peripheral Edema (n), Calf Tenderness (n) and Other (Normal rate)
Respiratory: Wheeze (negative), Crackles (negative), Rhonchi (left base), Non-Labored Respirations and Stridor (n)
GI: Soft, Non Distended and Non Tender
Neurology: AO x 3 and No Motor Deficits
Skin: Warm and Dry
Labs/Micro/Reports
Lab Data
04/10/23 10:50
04/10/23 20:34
Microbiology
04/06/23 15:58 Blood/Venous Blood Culture - Final
No Growth - Final Report
04/06/23 15:58 Blood/Venous Blood Culture - Final
No Growth - Final Report
04/06/23 17:28 Pleural Fluid Body Fluid Culture - Final
No Growth After 72 Hours
04/06/23 17:28 Pleural Fluid Gram Stain - Final
--- NOTE | 2023-04-11 14:25 | W.PN.HOSP.TC ---
Today's Communication/Plan
-
Discharge today
Assessment / Plan
Assessment / Plan
Physical Exam
General: No acute distress
HEENT: Normocephalic, Moist Mucous Membranes, 2 liters of nasal cannula oxygen
Respiratory: Decreased Breath Sounds Bilaterally with mild wheezes
Cardiac: S1/S2 and Irregular Rhythm
GI: Soft, Nontender and Nondistended. Positive bowel sounds.
Musculoskeletal: No Cyanosis
Skin: Warm and Dry
Neuro: Awake, Alert and Oriented
Psych: Calm
Assessment/Plan
82 yo man with PMH significant for:
CABG 03/01/23,
post-operative persistent A.fib on Eliquis,
COPD, on home oxygen 3 L
post CABG,
CHF,
HTN,
HLD,
right kidney cancer s/p right nephrectomy
Presented to the emergency department due to dyspnea with difficulty breathing, temp of 100.1 F, cough. Requiring BIPAP for respiratory stability. Was Hypoxic at 88% RA and had a respiratory rate of 38. In ED given IV Cefepime, IV Lasix 80,
Duo-Neb, BIPAP 02/27 and NRB. Then had a thoracentesis and 1250 CCs of hemorrhagic fluid removed. He felt better after this.
82 man with complex SOB from PNA, heart failure, pleural effusion, COPD. 1.25 L bloody fluid removed from lung and he feels better. Cardiology consulted. Family very concerned about detention CHF management. Had a CABG in February.
#Acute on chronic hypoxic respiratory failure, required BiPAP, multifactorial likely due to moderate size left pleural effusion, acute heart failure, pneumonia and COPD.
A. healthcare associated pneumonia with gram negative bacteria and possibly gram positive bacteria;
-COVID, Flu negative
sputum cx 03/24 positive for P Aeruginosa & MSSA,
Continue treatment as HCAP w broad-spectrum IV abx
-IV Cefepime
-Stopped IV Vanco as MRSA negative
-On discharge, Levofloxacin to complete at least 7 d course through 04-13-23
-Results of thoracentesis reviewed
B. moderate size left pleural effusion, status post drainage of 1250 cc hemorrhagic fluid from thoracentesis - follow-up pleural fluid studies after discharge
C. acute HFmrEF -- continue intravenous diuresis
D. COPD exacerbation -- consulted pulmonary, recommendations appreciated, continue breathing treatments
#Chronic Obstructive Pulmonary Disease exacerbation on Home Oxygen
Treat COPD exacerbation:
-Duo-Nebs scheduled and prn
-Status post intravenous steroids
-Prednisone 40 mg taper Q3D taper by 10 mg until off
-At home keep O2 at 2L at rest, and 4L on exertion
-Consulted pulmonary, recommendations appreciated
-Continue home Anoro and prn Albuterol on discharge
-Follow-up with Dr. Garay on 04/12/23
#Coronary Artery Disease status post Coronary Artery Bypass Grafting on March 01, 2023 �
Cardiology consultation appreciated--No symptoms to suggest angina
continue medical management
-aspirin, statin, Eliquis, PPI
-troponins (negx3)
#Cardiomyopathy�(Left Ventricular Ejection Fraction 40-45%)
Echo 03/26/2023 EF 40 to 45% with basal inferior and and inferolateral hypokinesis aortic sclerosis without stenosis.
Diuresis
#Acute Heart Failure with mid-range Ejection Fraction
- Status post IV Lasix 40 mg IV daily
- Consulted cardiology, recommendations appreciated
- PO diuretics on discharge
-GDMT was previously limited by JOSÉ LUIS last month and copd, but given improvement in kidney function do Farxiga
- Due to systolic blood pressures in the 90s, Entresto should be considered to be started as an outpatient
#Atrial Fibrillation on Eliquis
- Continue rate control and anticoagulation.
- Amiodarone was previously discontinued due to avoid possible pulmonary effects
- Plan as noted by cards:
'electrical cardioversion after patient's been consistently on anticoagulation for greater than 3 weeks.�
This was based on patient's prior request to avoid DERIC.�
Could reconsider timing of getting patient back in rhythm but respiratory status needs to be improved prior to considering any additional procedures.'
- Follow-up with outpatient cardiology
#Hypertension
#Hyperlipidemia
#Anemia
-Will need outpatient follow-up
#Sleep apnea.
-nightly CPAP
#Renal cancer status post nephrectomy - dose meds with care.
Suspected JOSÉ LUIS - RESOLVED
Monitor renal function
#High K - RESOLVED - check daily. Should improve with diuresis
#BG of 248 - supplemental insulin as needed - consulted Diabetes SPECIAL COLLECTIONS LIBRARIAN, evaluation and recommendations appreciated
DVT proph-Eliquis
Full Code

I spoke to patient's daughter Haley on April 10, 2023. All questions and concerns were answered to satisfaction.
I spoke to patient's Haley on April 11, 2023. All questions and concerns were answered to satisfaction.

More than 30 minutes spent in discharge including
Final examination of the patient
Summarizing hospital stay
Instructions for continuing care to all relevant caregivers
Preparation of discharge records, prescriptions, and referral forms
Total time spent (in minutes): 45
Anticipated Discharge: Today
Subjective/Interval History
-
Date of Service: April 11, 2023
Patient was seen and examined. He reported feeling fine, denied any chest pain, shortness of breath or any other complaints and would like to go home if possible today.
Objective Data
-
Vital Signs:
Vital Signs
Temp Pulse Resp BP Pulse Ox
98.5 F 93 16 121/50 92
04/11/23 11:55 04/11/23 11:06 04/11/23 11:06 04/11/23 09:18 04/11/23 11:41
I&O
04/10/23 04/11/23 04/12/23
06:59 06:59 06:59
Intake Total 720 / 720 1460 / 1460
Balance 720 / 720 1460 / 1460
--- NOTE | 2023-04-11 16:30 | CM ---
Patient with Dx Acute on chronic hypoxic respiratory failure, pleural effusion, heart failure, pneumonia and COPD. O2 2L. PT recommends HH.
CM Consult: walker check Farxiga, Jardiance & Entresto; per ambulatory orders Farxiga cost initially provided was $40, recheck showed $90. Jardiance and Entresto each $90. Spoke with patient who prefers CM discuss with his ; agrees to the
meds however wants to speak with home economist about the medical necessity for taking them. states patient took Entresto already prior to his surgery---> message sent to Darrius Herman & [facility].
Met with patient and ; both agree to d/c home today with resumption of [facility]. IMM completed. Patient confirms he has home O2. His & son will provide transport home. Provided Farxiga Free Month card to patient.
Spoke with Mellisa at [facility]; she was informed of d/c today and they are able to resume service.
Plan home today with resumption [facility].
--- NOTE | 2023-04-11 16:43 | W.DS.TRANS ---
DC Summary - Stroke Coordinator
-
Discharge Instructions:
Discharge Diagnosis/Procedures Acute on chronic hypoxic respiratory failure,
required BiPAP, multifactorial likely due to
moderate size left pleural effusion, acute heart
failure, pneumonia and COPD
Moderate size left pleural effusion, status post
drainage of 1250 cc hemorrhagic fluid from
thoracentesis
Chronic Obstructive Pulmonary Disease
exacerbation on Home Oxygen
Coronary Artery Disease status post Coronary
Artery Bypass Grafting on March 01, 2023
Cardiomyopathy (Left Ventricular Ejection
Fraction 40-45%)
Acute Heart Failure with mid-range Ejection
Fraction
Atrial Fibrillation on Eliquis
Hypertension
Hyperlipidemia
Anemia
Sleep apnea
Renal cancer status post nephrectomy - dose meds
with care.
Suspected Acute Kidney Injury
Hyperkalemia
Hyperglycemia
Diet Low Sodium,2 Gram Sodium,Diabetic, Carb
Controlled,Restrict fluids to 48 oz,Low Fat,Low
Cholesterol
Activity As tolerated
Driving Restrictions No driving
Other Services VN
Specialty Instructions Weigh Daily
Instructions: Levofloxacin (Systemic)
*CBC Heart Failure Instructions
*DCA Heart Failure Instructions
*PCP/Other [facility] Heart Failure Instructions
Stand-Alone Forms:
Changes to Home Medications: Yes
Discharge Medications:
DC Medications w/original date entered in [facility]
atorvastatin 40 mg tablet 40 mg PO QPM #90 tabs 01/25/23
acetaminophen 325 mg tablet 650 mg PO Q4HPRN PRN mild pain,headache,temp >101F #0 tabs 03/06/23
pantoprazole 40 mg tablet,delayed release 40 mg PO DAILY Gastrointestinal issue #30 tabs 03/06/23
apixaban 5 mg tablet (Eliquis) 5 mg PO BID #60 tabs 03/07/23
umeclidinium 62.5 mcg-vilanterol 25 mcg/actuation powdr for inhalation (Anoro Ellipta) 1 inh inhalation R DAILY Lung/Breathing Issues 03/13/23
cyanocobalamin (vitamin B-12) 1,000 mcg tablet 1,000 mcg PO DAILY #100 tabs 03/15/23
ipratropium 0.5 mg-albuterol 3 mg (2.5 mg base)/3 mL nebulization soln 3 ml inhalation R Q4HPRN PRN wheezing #90 mL 03/15/23
albuterol sulfate 90 mcg/actuation aerosol inhaler 2 puff inhalation R Q6 PRN sob/wheezing 04/06/23
aspirin 81 mg tablet,delayed release 81 mg PO DAILY Blood Clot Prevention/Tx 04/06/23
nitroglycerin 0.4 mg sublingual tablet 0.4 mg sublingual [id number] PRN chest pain 04/06/23
dapagliflozin propanediol 10 mg tablet (Farxiga) 10 mg PO DAILY #30 tabs 04/11/23
furosemide 40 mg tablet 40 mg PO DAILY Fluid Retention/Swelling #30 tabs 04/11/23
levofloxacin 750 mg tablet 750 mg PO DAILY 2 days #2 tabs 04/11/23
prednisone 10 mg tablet See Rx Instructions .Route .COMPLEX #16 tabs 04/11/23
Home Medication Changes
New Medications are Farxiga, Levofloxacin, Prednisone Taper
Furosemide has been increased to 40 mg daily
Pending Results: Yes
Additional Pending Results:
Final results of pleural fluid studies including cytology
Total time spent discharging patient (in min): 45
--- NOTE | 2023-04-17 19:43 | W.DCSUMMARY ---
Discharge Summary
Discharge Data
Date of Admission: 04/06/23
Date of Discharge: 04/11/23
Total time spent discharging patient (in min): 45
-
Pending Results: Yes
Additional Pending Results:
Final results of pleural fluid studies including cytology
Hospital Course
82 y/o male with past medical history significant for coronary artery bypass grafting 03/01/23, post-operative persistent atrial fibrillation on Eliquis, chronic obstructive pulmonary disease, on home oxygen 3 L post coronary artery bypass grafting,
congestive heart failure, hypertension, hyperlipidemia, right kidney cancer status post right nephrectomy, presented to the emergency department due to shortness of breath. He had a low-grade temperature of 100.1 F, minimal cough, he was also
tachypneic in the emergency department, and hypoxic, requiring BIPAP for respiratory stability. Chest X-ray and ultrasound in the emergency department performed showed moderate left pleural effusion and smaller right pleural effusion along with
dense left lower lobe consolidation and cardiogenic interstitial pulmonary edema.
Patient was admitted to IMU. He was started on intravenous steroids and intravenous antibiotics. Cardiology was consulted and patient was started on intravenous diuresis for heart failure exacerbation, it was noted that amiodarone was discontinued
on the last admission suspected to avoid possible pulmonary effects, and the plan was for electrical cardioversion after patient had been consistently on anticoagulation for greater than 3 weeks. Patient had a thoracentesis on April 06, 2023 with
1250 cc thin dark hemorrhagic pleural fluid from the left side, and subsequent symptomatic improvement.
Patient's chronic obstructive pulmonary disease was thought to play a significant role in patient's presentation. Pulmonary was consulted, and patient's intravenous steroid was switched to oral prednisone taper. Patient's Cefepime was also changed
to Levofloxacin.
It was noted that previously, goal-directed medical therapy was limited by acute kidney injury however now it would be okay to start patient on an SGLT-2 inhibitor and Entresto. Entresto could not be started on discharge due to softer blood
pressures.
Diabetes Nurse Practitioner was consulted due to hyperglycemia.
Discharge Plan
-
Patient Disposition: Home with Home Care
Discharge Diagnosis/Procedures: Acute on chronic hypoxic respiratory failure, required BiPAP, multifactorial likely due to moderate size left pleural effusion, acute heart failure, pneumonia and COPD
Moderate size left pleural effusion, status post drainage of 1250 cc hemorrhagic fluid from thoracentesis
Chronic Obstructive Pulmonary Disease exacerbation on Home Oxygen
Coronary Artery Disease status post Coronary Artery Bypass Grafting on March 01, 2023
Cardiomyopathy (Left Ventricular Ejection Fraction 40-45%)
Acute Heart Failure with mid-range Ejection Fraction
Atrial Fibrillation on Eliquis
Hypertension
Hyperlipidemia
Anemia
Sleep apnea
Renal cancer status post nephrectomy - dose meds with care.
Suspected Acute Kidney Injury
Hyperkalemia
Hyperglycemia
Diet: Low Fat, Low Cholesterol, Low Sodium, 2 Gram Sodium, Diabetic, Carb Controlled and Restrict fluids to 48 oz
Activity: As tolerated
Driving Restrictions: No driving
Other Services: VN
Specialty Instructions: Weigh Daily- Call MD for wt gain/loss 3 lbs overnight/5 lbs in 1 week
Activity Restrictions/Additional Instructions:
Due to your systolic blood pressure being in the 90s on April 11, 2023, and the fact that Entresto can lower blood pressure, Entresto is not being started at this time.
Follow-up with Dr. Garay (your metal riveter) on 04/12/23
At home keep your home oxygen at 2 liters/min at rest, and 4 liters/min on exertion
Please follow-up closely with your road builder regarding when exactly you can start Entresto.
You and/or your outpatient physicians will need to follow-up on the final results of your pleural fluid studies from this hospitalization.
Continue Farxiga at home
Lasix is being increased to 40 mg daily
Instructions: Levofloxacin (Systemic), *CBC Heart Failure Instructions, *DCA Heart Failure Instructions, *PCP/Other [facility] Heart Failure Instructions
Referrals:
Braulio Beltrán DO [Family Provider] - in less than 1 week (Needs further anemia evaluation)
Prescriptions:
New
dapagliflozin propanediol [Farxiga] 10 mg Tablet
10 mg PO DAILY Qty: 30 0RF
prednisone 10 mg tablet
See Rx Instructions .ROUTE .COMPLEX Qty: 16 0RF
Rx Instructions:
Starting on 04/12/23: 40 mg/day x1 day; 30 mg/day x2 days; 20 mg/day x2 days; 10 mg/day x2 days
levofloxacin 750 mg Tablet
750 mg PO DAILY 2 Days Qty: 2 0RF
Rx Instructions:
Start on April 12, 2023
Continued
atorvastatin 40 mg tablet
40 mg PO QPM Qty: 90 10RF
acetaminophen 325 mg Tablet
650 mg PO Q4HPRN PRN (Reason: mild pain,headache,temp >101F ) Qty: 0 0RF
pantoprazole 40 mg Tablet,Delayed Release (Dr/Ec)
40 mg PO DAILY Qty: 30 0RF
Eliquis 5 mg tablet
5 mg PO BID Qty: 60 3RF
Anoro Ellipta 62.5-25 mcg/actuation Blister With Device
1 inh INHALATION R DAILY
ipratropium-albuterol 0.5 mg-3 mg(2.5 mg base)/3 mL Solution For Nebulization
3 ml inhalation R Q4HPRN PRN (Reason: wheezing) Qty: 90 0RF
cyanocobalamin (vitamin B-12) 1,000 mcg Tablet
1,000 mcg PO DAILY Qty: 100 0RF
aspirin 81 mg Tablet,Delayed Release (Dr/Ec)
81 mg PO DAILY
nitroglycerin 0.4 mg tablet, sublingual
0.4 mg sublingual [id number] PRN (Reason: chest pain)
albuterol sulfate 90 mcg/actuation HFA aerosol inhaler
2 puff inhalation R Q6 PRN (Reason: sob/wheezing)
furosemide 40 mg tablet
40 mg PO DAILY Qty: 30 1RF
Discontinued
azithromycin 250 mg tablet
250 mg PO DAILY
methylprednisolone 4 mg tablets,dose pack
4 mg PO .TAPER
Discharge Orders:
Discharge Patient (As Directed); Ordered 04/11/23
Ordered By: Dar Herr
Discharge Date and Time
Discharge Date/Time: 04/11/23 17:13
== END 2023-04-11 17:13 | disposition home health service (06) | DRG 871 ==
LOC: IMU 17:47
PROVIDERS: Nurse Practitioner Family; Physician Assistant; Radiology Vascular & Interventional Radiology; ADMITTING PHYSICIAN Internal Medicine; ATTENDING PHYSICIAN Hospitalist; CONSULT PHYSICIAN Internal Medicine Cardiovascular Disease; CONSULT PHYSICIAN Internal Medicine Pulmonary Disease; EMERGENCY PHYSICIAN Emergency Medicine; FAMILY PHYSICIAN Family Medicine
PROC: 0W9B3ZZ Drainage of Left Pleural Cavity, Percutaneous Approach (ICD-10-PCS; 2023-04-06)
DX: A41.9 Sepsis, unspecified organism (principal); J10.00 Influenza due to other identified influenza virus with unspecified type of pneumonia; J15.69 Pneumonia due to other Gram-negative bacteria; J96.21 Acute and chronic respiratory failure with hypoxia; I50.20 Unspecified systolic (congestive) heart failure; J44.0 Chronic obstructive pulmonary disease with (acute) lower respiratory infection; I48.19 Other persistent atrial fibrillation; I42.9 Cardiomyopathy, unspecified; J44.1 Chronic obstructive pulmonary disease with (acute) exacerbation; N17.9 Acute kidney failure, unspecified; Y95 Nosocomial condition; Z79.82 Long term (current) use of aspirin; Z79.01 Long term (current) use of anticoagulants; Z87.891 Personal history of nicotine dependence; I11.0 Hypertensive heart disease with heart failure; E78.00 Pure hypercholesterolemia, unspecified; I25.10 Atherosclerotic heart disease of native coronary artery without angina pectoris
CPT/HCPCS: 88305; 32555; 71045; 76604; 80048; 80053; 80069; 81003; 82945; 82947; 82962; 83036; 83615; 83735; 83880; 83986; 84157; 84443; 84484; 85025; 87015; 87040; 87070; 87205; 87449; 87502; 87641; 87811; 88112; 88341; 88342; 89051; 93005; 94640; 94660; 94761; 96374; 96375; 97116; 99291